=== PATIENT | female | born 1970 ===

== ENCOUNTER 2017-04-30 23:53 | Inpatient (IN) ==
[2017-05-01] MEDS ORDERED: MORPHINE 2 MG/1 ML SYRINGE IV STA (00:47)
[2017-05-01] MEDS ORDERED: methylPREDNISolone SOD SUC 125 MG/2 ML VIAL IV STA (00:47)
[2017-05-01] MEDS ORDERED: FUROSEMIDE 100 MG/10 ML VIAL IV STA (00:47)
[2017-05-01] MEDS ORDERED: cefTRIAXone 1,000 MG in SODIUM CHLORIDE 0.9% 100 ML IV STA (00:47)
[2017-05-01] MEDS ORDERED: ONDANSETRON 4 MG/2 ML VIAL IV STA (00:47)
[2017-05-01] MEDS ORDERED: ALBUTEROL 2.5 MG/3 ML NEB RESP TX SCH (01:00)
[2017-05-01] MEDS ORDERED: ONDANSETRON 4 MG/2 ML VIAL ONE (01:01)
[2017-05-01] MEDS ORDERED: cefTRIAXone 1,000 MG VIAL ONE (01:01)
[2017-05-01] MEDS ORDERED: MORPHINE 2 MG/1 ML SYRINGE ONE (01:02)
[2017-05-01] MEDS ORDERED: FUROSEMIDE 100 MG/10 ML VIAL ONE (01:02)
[2017-05-01] MEDS ORDERED: SODIUM CHLORIDE 0.9% 100 ML IV ONE (01:02)
[2017-05-01] MEDS ORDERED: methylPREDNISolone SOD SUC 125 MG/2 ML VIAL ONE (01:02)
--- NOTE | 2017-05-01 01:10 | Emergency Department Note ---
Freddy Gar Emily, am scribing for, and in the presence of, Rian Grace MD 01: 09. Lesly Gar Charles R, MD, personally performed the services described in this documentation, ascribed by Hilary Hayes in my presence, and it is both accurate and complete . Arrival - Arrival Chief Complaint: Shortness of Breath Stated Complaint: shortness of breath ED Nursing Triage Note: shortness of breath, unable to ambulate long distances, dyspnea at rest Mode of Arrival: Stretcher Limitations: No Limitations Source: Patient Time Seen by Provider: 05/01/17 00:29 - History of Present Illness HPI Narrative: Pt is a 46 y/o female who was transferred from [facility] for further evaluation of dyspnea that started yesterday. Pt c/o SOB, dyspnea, and PERRY but denies chest pain. Pt reports having abdomen pain and was dx on April 08, with tumor on abdomen that is cancerous, but is unsure of what exactly or stage. Pt states she has appointment tomorrow in [place] for treatment plan but wants to stay in [place] for tx. CT chest from [facility] shows pleural effusion, possible PNA, and fatty liver. Pt reports not able to eat, saying "it just sits on my stomach," and bloating with distention. Pt received 20mg of Lasix at [facility]OLOGIST. Onset (ago): day(s) Consistency: constant Severity: moderate Severity scale (1-10): 8 Quality: aching, fullness Date of Last Menstrual Period: 10/26/16 Review of System - Review of System 12 point system: reviewed and no additional remarkable complaints except as stated - Review of System Constitutional: Absent: fever Respiratory: Present: respiratory distress, other (dypnea). Absent: cough Cardiovascular: Present: dyspnea on exertion. Absent: chest pain Gastrointestinal: Present: abdominal pain. Absent: nausea, vomiting Skin: Absent: rash Neurological: Absent: headache, confusion Medical,Surgical,& Family Hx - Family History Family History: noncontributory - Social History Smoking Status: Former smoker Frequency of Alcohol Use: Occasionally Type of Drug Use: None Functional capacity: independent ambulation Exam Vital Signs: Vital Signs Temperature 98.5 F 05/01/17 00:00 Pulse Rate 90 05/01/17 01:17 Respiratory Rate 22 07/07/17 01:17 Blood Pressure 120/71 05/01/17 00:00 O2 Sat by Pulse Oximetry 92 L 05/01/17 01:17 - General General appearance: alert, in no apparent distress, obese (morbidly) - Head Head exam: Present: atraumatic, normocephalic - Eye Eye exam: Present: PERRL, EOMI - ENT ENT exam: Present: mucous membranes moist. Absent: mucous membranes dry - Neck Neck exam: Present: full ROM. Absent: tenderness - Chest Chest inspection: Present: symmetric chest wall rise. Absent: tenderness - Respiratory Respiratory exam: Present: rales (bilateral). Absent: normal lung sounds bilaterally - Cardiovascular Cardiovascular exam: Present: regular rate, normal rhythm, normal heart sounds - Abdominal Exam Abdominal exam: Present: soft, distention (protrubent). Absent: tenderness ( fullness), guarding, rebound - Extremities Exam Extremities exam: Present: full ROM, pedal edema (+2). Absent: tenderness - Neurological Exam Neurological exam: Present: alert, oriented X3, CN II-XII intact. Absent: motor sensory deficit - Psychiatric Psychiatric exam: Present: normal affect, normal mood - Skin Skin exam: Present: warm, dry Results - Labs CBC & BMP: 05/01/17 01:14 Lab Results: I have reviewed the patients labs Labs: Laboratory Tests 05/01/17 01:10 ABG pH 7.426 ABG pCO2 52.5 H ABG pO2 64.7 L ABG HCO3 32.0 H ABG Total CO2 30.5 H ABG O2 Saturation 92.1 L ABG Base Excess 8.4 H FiO2 32.00 Disposition Clinical Impression: Pneumonia, Carcinomatosis, Abdominal pain, Ovarian cancer, Abdominal carcinomatosis, Acute dyspnea, Morbid obesity Case discussed with: patient Disposition: Still a Patient Condition: Stable Time of Disposition: 01:09
[2017-05-01 01:32] LABS: ABG Base Excess 8.4 MMOL/L (-2.5-2.5); ABG Oxygen Saturation 92.1 % (95-100); ABG PCO2 52.5 MM HG (35-48); ABG PH 7.426 (7.35-7.45); ABG PO2 64.7 MM HG (80-95); ABG TCO2 30.5 MMOL/L (23-27); Allen Test Positive
[2017-05-01 01:46] LABS: Basophils % 0.2 % (0.0-0.8); Eosinophils % 0.1 % (0.00-10.9); Immature Granulocytes % 1.3 %; Immature Granulocytes Absolute 0.16 #; Lymphocytes # 0.7 10*3/uL (1.4-4.0); Lymphocytes % 5.6 % (21.3-54.2); Mean Corpuscular HGB Conc 32.4 GM/DL (32-36); Mean Corpuscular Hemoglobin 29 PG (27-34); Mean Corpuscular Volume 90.2 FL (87-102); Monocytes # 0.3 10*3/uL (0.11-0.8); Monocytes % 2.2 % (1.7-12.7); Neutrophils # 11.4 10*3/uL (1.4-7.4); Neutrophils % 90.6 % (38.7-73.9); Platelet Count 510 T/CUMM (130-400); Red Cell Distribution Width 14.5 % (9.3-17.3); White Blood Count 12.6 T/CUMM (4-12)
--- NOTE | 2017-05-01 01:46 | Hospitalist History & Physical ---
Assessment and Plan (1) Abdominal carcinomatosis Status: Acute Current Visit: Yes (2) Abdominal pain Status: Acute Current Visit: Yes (3) Acute dyspnea Status: Acute Current Visit: Yes (4) Carcinomatosis Status: Acute Current Visit: Yes (5) Morbid obesity Status: Acute Current Visit: Yes (6) Pneumonia Status: Acute Current Visit: Yes (7) Hemoptysis Status: Acute Assessment and plan: Our plan for this patient will be admitting her to our service will treat her under the pneumonia protocol. I will continue her home meds as appropriate. I am going to consult pulmonary since she is having hemoptysis. Will also consult hematology oncology regarding the abdominal cancer and gynecological cancer. Will order abdominal ultrasound and pelvic ultrasound. Current Visit: Yes History of Present Illness Chief complaint: Shortness of breath, hemoptysis, abdominal pain History of present illness: Ms. Jarrett is a 46 year old female with past medical history significant for hypertension, morbid obesity and gynecological cancer that has not been staged yet. Patient reports that she has had abdominal pain 3 months. Nurse practitioner at [facility] had ordered MRI at our hospital and it was performed on 04/08/2017. The impression was bilateral large complex cystic and solid masses within the [place]nex[place] no normal ovarian tissue seen. Ascites was present it was moderately severe. Patient had a CT scan of her abdomen done today at [facility]. The findings for it noted focal infiltrative disease at the intermittent suspicious for carcinomatous and question of additional peritoneal carcinomatosis with mild to moderate density intraperitoneal fluid. She also noted is having chronic changes including obesity hepatis to ptosis and hepatomegaly. I suggested follow-up with abdominal and pelvic ultrasound. Patient CT scan of her chest showed mild pleural effusion predominantly on the left with mild bilateral predominantly posterior pulmonary lower lobe patchy lung disease compatible with atelectasis and suggestive of infiltrate consistent with pneumonia. Patient was to have a appointment with Dr. Dahlia Perdomo at [facility] tomorrow. She has never been seen at [facility] before. The reason she was transferred to our hospital was that she was short of breath 2 days. She has been breaking into sweats. She has been having a cough that has been streaked with blood at times. She feels better with breathing treatment I was consulted to admit her through the emergency room for pneumonia Medical,Surgical,& Family Hx - Medical History Cardio: History of: Hypertension Reproductive: History of: Reproductive Cancer - Surgical History Abdominal Surgeries: Surgical HX of: Cholecystectomy - Social History Smoking Status: Former smoker Frequency of Alcohol Use: Occasionally Type of Drug Use: None 12 point system: reviewed and no additional remarkable complaints except as stated Exam - Constitutional Vitals: Period Temp Pulse Resp BP Sys/[place] Pulse Ox Last 24 Hr 98.5 F-98.5 F 86-90 20-22 120-120/71-71 92-94 - General General appearance: alert, in no apparent distress, obese (morbidly) - Head Head exam: Present: atraumatic, normocephalic - Eye Eye exam: Present: PERRL, EOMI - ENT ENT exam: Present: mucous membranes moist. - Neck Neck exam: Present: full ROM. - Chest Chest inspection: Present: symmetric chest wall rise - Respiratory Respiratory exam: Present: rales (bilateral). And wheezing - Cardiovascular Cardiovascular exam: Present: regular rate, normal rhythm, normal heart sounds - Abdominal Exam Abdominal exam: Present: soft, distention (protrubent) patient does have tenderness and a fullness sensation on her upper abdomen. - Extremities Exam Extremities exam: Present: full ROM, pedal edema (+2). Absent: tenderness - Neurological Exam Neurological exam: Present: alert, oriented X3, CN II-XII intact. Absent: motor sensory deficit - Psychiatric Psychiatric exam: Present: normal affect, normal mood - Skin Skin exam: Present: warm, dry Results - Labs Labs: Labs from [facility] displayed a white count of 14.2 hemoglobin 12.6 hematocrit 38.8 BUN 7 sodium 137 potassium 3.3 CO2 was 29.2 total protein 7.9 albumin 2.5 total bili 0.5 alk phos 90 SGOT 19 SGPT 32 CPK 0.2 direct bili 0.2 troponin less than 0.05 glucose 174 calcium 7.4 chloride 97 creatinine 1.0 pro BNP was 510 urinalysis was negative
[2017-05-01 01:59] LABS: Alanine Aminotransferase 16 U/L (13-56); Albumin 2.5 G/DL (3.4-5.0); Alkaline Phosphatase 87 U/L (45-117); Aspartate Amino Transferase 27 U/L (0-37); Blood Urea Nitrogen 6 MG/DL (7-18); Calcium 7.6 MG/DL (8.5-10.1); Glucose 159 MG/DL (74-106); Magnesium 1.3 MG/DL (1.8-2.4); Osmolality,Calculated 273.8 MOS/KG (273-304); Potassium 3.7 MMOL/L (3.5-5.1); Sodium 137 MMOL/L (136-145); Total Protein 7.2 G/DL (6.4-8.3); Troponin I Only < 0.015 NG/ML (0.00-0.045)
[2017-05-01] MEDS ORDERED: ONDANSETRON 4 MG/2 ML VIAL IV PRN (02:18)
[2017-05-01] MEDS ORDERED: GLUCAGON 1 MG VIAL IM PRN (02:18)
[2017-05-01] MEDS ORDERED: ALBUTEROL 2.5 MG/3 ML NEB RESP TX PRN (02:18)
[2017-05-01] MEDS ORDERED: DEXTROSE 50% 25 GM/50 ML VIAL IV PRN (02:18)
[2017-05-01] MEDS ORDERED: MORPHINE 2 MG/1 ML SYRINGE IV PRN (02:18)
[2017-05-01 03:21] LABS: Lymphocytes 5 % (20-55); Platelet Estimate Normal; Segmented Neutrophils 93 % (50-85); Total Cells Counted 100
[2017-05-01] MEDS ORDERED: MAGNESIUM SULF RIDER 2 GM in PREMIX 1 EACH IV ONE (04:00)
[2017-05-01] MEDS: AZITHROMYCIN INJ 500 MG in SODIUM CHLORIDE 0.9% 250 ML IV SCH (04:04)
[2017-05-01 05:20] LABS: Apearance,Urine CLEAR (Clear); Bacteria,Urine Occasional /HPF (Few); Bilirubin,Urine Negative (Negative); Blood, Urine Negative (Negative); Glucose,Urine (UA) Negative (Negative); Hyaline Casts,Urine 1 /LPF (0-3); Ketones,Urine Negative (Negative); Mucus,Urine Occasional /LPF (Occasional); Nitrite,Urine Negative (Negative); Protein,Urine Negative; Squamous Epithelial Cell,Urine Occasional /HPF (0-10); Urine Color Straw (Yellow); Urine Specific Gravity 1.003 (1.001-1.035); Urine Urobilinogen < 2.0 EU/DL (0.2-1.0)
--- NOTE | 2017-05-01 06:06 | XRay Report ---
XR chest 1V portable Indication: Shortness of breath Comparison: Chest x-ray 04/30/2016. Technique: Portable AP chest was performed. Findings: Underpenetrated chest demonstrates normal heart size and parenchymal opacities within the left lung base that partially obscure the left hemidiaphragm. Haziness in the more lateral aspect left lung base may reflect dependent fluid. Lungs otherwise are grossly clear. Bones and soft tissues are unremarkable. Impression: 1. Infectious process and/or atelectasis could be considered within the left lung base. Small left-sided pleural effusion is not excluded. Good quality PA/lateral chest x-ray would be useful for further evaluation. 05/01/2017 6:02 AM PROCEDURE INTERPRETED AT [facility] DEPARTMENT OF RADIOLOGY Final Report Signed by: Dr. Elliott Rodriguez
[2017-05-01] MEDS: ALBUTEROL 2.5 MG/3 ML NEB RESP TX SCH ×3 (06:45→19:41)
[2017-05-01] MEDS: INSULIN REGULAR 100 UNIT/ML SUBCUT SCH ×4 (07:58→20:39)
--- NOTE | 2017-05-01 08:07 | EKG Report ---
Stationary ECG Study [facility] ER Test Date: 05/01/2017 12:40:13 AM Pat Name: CHRISTINA DALTON Department: Room: Gender: F Index Editor: : 1970 Requested by: Rian Rutherford Order Number: [id number] Reading MD: RANDY BETTS Intervals [place] Rate: 89 P: 55 WA: 165 QRS: 18 QRSD: 110 T: 24 QT: 388 QTc: 435 Interpretive Statements SINUS RHYTHM WITH PAC/aberrancy Poor R wave progression Electronically Signed On 05-01-17 08:06:38 CDT by RANDY BETTS [email or web address]
[2017-05-01] MEDS: PANTOPRAZOLE 40 MG TABLET PO SCH (08:14)
[2017-05-01] MEDS: ENOXAPARIN 40 MG/0.4 ML SYRINGE SUBCUT SCH (08:14)
--- NOTE | 2017-05-01 08:19 | Pulmonology Consult Note ---
Assessment and Plan (1) Pneumonia Status: Acute Assessment and plan: The patient comes in coughing up some blood-tinged sputum and looks like she has some left lower lobe pneumonia with effusion. She may need a thoracentesis at some point but she at present has trouble sitting up. She is started on antibiotics and respiratory therapy. Current Visit: Yes (2) Malignant neoplasm of ovary Status: Acute Assessment and plan: She apparently has large ovarian masses and carcinomatosis. She has had an ultrasound of her abdomen. Current Visit: Yes (3) Abdominal carcinomatosis Status: Acute Assessment and plan: She does have swelling and ascites and a very large abdomen. Current Visit: Yes (4) Morbid obesity Status: Acute Assessment and plan: The patient is considerably overweight at this point. She did diurese a little. Current Visit: Yes History of Present Illness Chief complaint: Shortness of breath History of present illness: Ms. Jarrett is a 46 year old female that has a history of obesity and hypertension and has recently been found to have ovarian cancer. She apparently has large ovarian masses and carcinomatosis of her abdomen. She is actually scheduled to go to [facility] today but came down because of worsening shortness of breath. She has had abdominal swelling and has trouble sitting up because of the discomfort in her upper abdomen. The last few days she has had some night sweats and is comfortable little bit of blood-tinged sputum. She does not have any definite pleurisy. She was felt to have some left lower lobe pneumonia on her scans. She is a former smoker but no history of lung disease. She says she is reasonably comfortable at present lying flat in bed. Home Medications Medication Instructions Recorded Confirmed Type Acetaminophen Tab [Tylenol Tab] 500 mg PO Q6H PRN 05/01/17 05/01/17 History Ergocalciferol (Vitamin D2) 50,000 unit PO Q7DAY 05/01/17 05/01/17 History [Vitamin D2] HYDROcodone/ACETAMIN 7.5-325 1 tablet PO Q6H PRN 05/01/17 05/01/17 History [[place] 7.5-325] Lisinopril 10 mg PO DAILY 05/01/17 05/01/17 History Methocarbamol Tab [Robaxin Tab] 750 mg PO TID 05/01/17 05/01/17 History Multivitamin [One Daily 1 each PO DAILY 05/01/17 05/01/17 History Multivitamin] Ondansetron [Ondansetron Odt] 2 mg PO Q8H PRN 05/01/17 05/01/17 History Sennosides/Docusate Sodium 1 each PO DAILY 05/01/17 05/01/17 History [Senna-S Tablet] Tramadol HCl [Tramadol Tab] 50 mg PO Q6H PRN 05/01/17 05/01/17 History Allergies Allergy/AdvReac Type Severity Reaction Status Date / Time No Known Allergies Allergy Unverified 05/01/17 02:33 - Constitutional Constitutional: Present: chills, excessive sweating, night sweats, weight gain. Absent: fever(s) - EENT Eyes: Absent: loss of vision Ears: Absent: decreased hearing Nose, mouth and throat: Absent: dysphagia, headache(s), sinus pressure - Cardiovascular Cardiovascular: Present: dyspnea, edema. Absent: chest pain at rest - Respiratory Respiratory: Present: cough, dyspnea, hemoptysis, change in phlegm color. Absent: pain on inspiration - Gastrointestinal Gastrointestinal: Present: abdominal pain, bloating. Absent: dysphagia, nausea , vomiting - Genitourinary Genitourinary: Present: flank pain. Absent: difficulty urinating, hematuria - Musculoskeletal Musculoskeletal: Absent: arthralgias, muscle weakness - Neurological Neurological: Absent: abnormal speech, focal weakness, paresthesias - Psychiatric Psychiatric: Absent: anxiety Exam (Pulmonay) H&P - Constitutional Vitals: Period Temp Pulse Resp BP Sys/[place] Pulse Ox Last 24 Hr 97.2 F-98.5 F 84-103 17-30 94-176/45-107 91-98 General appearance: mild distress (The patient is reasonably comfortable lying flat in bed but has some discomfort when she sits up), morbidly obese - Head Head exam: Present: normal inspection, normocephalic - Eye Eye exam: Present: EOMI. Absent: scleral icterus Pupils: Present: CONCEPCION - ENT ENT exam: Present: normal exam - Neck Neck exam: Present: normal inspection. Absent: lymphadenopathy - Respiratory Respiratory exam: Present: decreased breath sounds, rales (She does have some crackles in her left base.). Absent: accessory muscle use, wheezes - Cardiovascular Cardiovascular exam: Present: regular rate and rhythm. Absent: gallop, systolic murmur - GI/Abdominal GI/Abdominal exam: Present: ascites, distended, firm (She does have a doughy feeling abdomen.), tenderness (She does have mild tenderness throughout), soft. Absent: organomegaly, rebound - Extremities Exam Extremities exam: Present: edema (She does have mild edema of her legs.). Absent: calf tenderness - Neurological Exam Neurological exam: Present: alert, oriented X3, CN II-XII intact - Psychiatric Psychiatric exam: Present: normal affect, normal mood - Skin Skin exam: Present: warm, dry Medical,Surgical,& Family Hx - Medical History Cardio: History of: Hypertension Reproductive: History of: Reproductive Cancer - Surgical History Abdominal Surgeries: Surgical HX of: Cholecystectomy - Family History Family History: Reports;: Family Cancer (mother), Family Diabetes (mother), Family Hypertension (mother) - Social History Smoking Status: Former smoker Frequency of Alcohol Use: Occasionally Type of Drug Use: None Results - Labs CBC & BMP: 05/01/17 01:14 05/01/17 01:14 Labs: Her PO2 is 64 with a PCO2 of 52 and a pH 7.42 - Diagnostic Findings Procedure: Chest x-ray: image reviewed by me, report reviewed by me (Chest x- ray shows haziness in the left base), CT - chest: image reviewed by me, report reviewed by me (CT does show some consolidation and effusion in the left base.)
[2017-05-01] MEDS ORDERED: FUROSEMIDE 40 MG/4 ML VIAL IV ONE (08:27)
--- NOTE | 2017-05-01 08:27 | Ultrasound Report ---
US abdomen Indication: Abdominal pain status post cholecystectomy. Comparison: None. Technique: Using transcutaneous probe, ultrasound imaging of the abdomen was performed. Ultrasound images were captured and stored. Interrogated structures include the liver, gallbladder, spleen, pancreas, right kidney, left kidney, aorta, and inferior vena cava. Findings: Aorta is not identified secondary to bowel gas. IVC is obscured from bowel gas. Liver is not well visualized. Liver appears to be enlarged and may be hyperechoic compared to right renal cortex. As measured, the right hepatic lobe is 21 to 22 cm. Boundaries of the liver are not well visualized. There may be minimal nodularity of the hepatic margin. Color flow is demonstrated within the interrogated portal venous segment. Common bile duct measures 4.4 mm. Pancreas is not well-visualized secondary to bowel gas. The small portion of the pancreatic head image demonstrates no evidence of abnormality. Right kidney measures 11.3 cm in craniocaudal dimension. Left kidney measures 11.8 cm in craniocaudal dimension. Spleen is grossly normal in size. Spleen is not well-visualized. Impression: 1. Largely a nondiagnostic exam secondary to poor visualization of multiple organs. Architectural details of the liver, pancreas, and kidneys are not well defined. Hepatic steatosis is not excluded. Hepatomegaly is suggested. 05/01/2017 8:22 AM PROCEDURE INTERPRETED AT [facility] DEPARTMENT OF RADIOLOGY Final Report Signed by: Dr. Elliott Rodriguez
--- NOTE | 2017-05-01 08:36 | Ultrasound Report ---
US transabdominal TV pelvis Indication: "Findings on CT scan" Comparison: There are no cross-sectional CT images of the abdomen or pelvis for comparison. Comparison is made to MRI of the pelvis performed 04/08/2017. Technique: Using transcutaneous and endovaginal probe, grayscale and color Doppler images of the pelvis were captured and stored. Findings: The right ovary measures 11.3 x 13.3 x 10.1 cm. Echotexture of the right ovary is more hypoechoic than expected. Additionally within the posterior aspect of the right ovary, there is a round oval more hypoechoic region measuring 5.1 x 4.4 cm favored to represent cyst. Left ovary additionally is enlarged measuring 9.4 x 12.3 x 7.9 cm. Poorly visualized left ovarian cysts are suggested, measuring up to 4.1 cm. The uterus measures 9.5 cm craniocaudal x 4.5 cm AP and has not identified in the transverse images submitted. Endometrial stripe as measured is 9 mm. Impression: 1. Bilateral ovarian enlargement is demonstrated. At least one large cyst is present within the right ovary. Left ovarian cyst is additionally suggested. Note is made that MRI is the optimal imaging modality for this entity. If clinical change has occurred since the comparison MRI images, repeat MRI of the pelvis is recommended for further evaluation. No meaningful history was provided prior to interpretation. Typically, pertinent history aids the interpretation of diagnostic studies. The numerous ovarian cysts demonstrated on MRI suggesting polycystic ovarian disease are not well reflected on ultrasound. 2. The uterus is not well-visualized. 05/01/2017 8:25 AM PROCEDURE INTERPRETED AT [facility] DEPARTMENT OF RADIOLOGY Final Report Signed by: Dr. Elliott Rodriguez
--- NOTE | 2017-05-01 09:17 | Oncology Consult Note ---
History of Present Illness Chief complaint: Probable gynecologic malignancy History of present illness: Ms. 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 However, she tells me that she has not had a tissue diagnosis. She was scheduled to see Dr. Perdomo in [place] this morning. However, she was transferred from the [facility] service early this morning with abdominal distention, dyspnea and running usually severe abdominal pain. In addition, she was producing blood-tinged sputum on admission and was noted to have pneumonia and a left pleural effusion and is being evaluated by Dr. Lauro Dominique. She is relatively well informed and tells me that she has been having symptoms for at least the last 3 months. Her last menstrual period was 6 months ago and prior to that time it was very irregular, occurring about every 3 months and being very short in duration. This lady had an MRI of the pelvis on April 08, 2017 that demonstrated bilateral large complex ovarian cysts and solid masses within the adnexa. No normal ovarian tissue was identified. The opinion of the reading radiologist was at this was possibly an ovarian cancer or other pelvic malignancy. Ascites was identified as well as suggestion of omental caking. The uterus demonstrated multiple fibroids and there was endometrial thickening. She has evidently also had CTs of her abdomen at the [facility]. Past medical history: No known allergies. She has been placed on lisinopril by Dr. Anderson and she tells me that she was found to have proteinuria but she described it as a "hole in my kidney". She is not diabetic. Cholecystectomy at age 17. Social history: She drinks occasionally and when she drinks, she smokes cigarettes. She tells me that she does not usually smoke if she is not drinking but she stopped doing both for about a month now. Family history is positive for cervical cancer in her mother but it was cured with surgery. No other first-degree relatives have any malignancies. She has at least one fourth cousin who had breast cancer. ROS Gen.: She is tells me that she has been having progressively increasing discomfort in her abdomen accompanied by dyspnea for at least 3 months. Eyes: No history of chronic disease, infections or visual loss. ENT: No history of chronic infections, epistaxis, chronic sore throat Lungs: She has begun to have increasing dyspnea which she describes in part as being restrictive lung disease brought on by her increasing abdominal distention. No prior history of asthma, emphysema, hemoptysis, chronic pleurisy or long-term or chronic infections Cardiovascular: No history of angina, coronary artery disease, congestive heart failure, cardiovascular surgery or DVT/VTE GI: She has had some gastroesophageal reflux and nausea and significant decrease in her appetite accompanied by gradually worsening abdominal distention. She has had a cholecystectomy when she was 17. No history of upper or lower GI bleeding, melena, dysphagia, odynophagia, liver disease or pancreatic disease. : No history of kidney stones, chronic kidney infections or hematuria. ELECTRICAL DESIGN TECHNOLOGIST: She has not had any biopsy-proven malignancy. Her menses have become more irregular and it appears that she is approaching menopause. Musculoskeletal: No history of chronic bone or joint pain or focal muscle atrophy or bone or joint deformity. Neurologic: No history of seizures, convulsions or paralysis. Psychiatric: No history of chronic psychiatric illness or psychiatric medications. Lymphatic: No history of significant or long-term lymphadenopathy Hematologic: No history of anemia, bleeding disorders or blood dyscrasias or long-term elevation or depression white cell count or petechiae. Skin: No history of chronic skin infections or rashes or significant skin lesions. Physical examination: General: The patient is morbidly obese and she is tachypneic and is in some respiratory distress. Eyes: Normal lids and conjunctivae. ENT: Her oral mucosa and pharynx are normal. Her trachea is midline and she has no neck masses. Lungs: Decreased breath sounds in the dependent portions of the lungs. She is tachypneic and she is not moving air very well, apparently because of abdominal distention. Cardiovascular: Radial pulses are normal. Her heart rhythm is regular without murmur, gallop or rub. There is no jugular venous distention, clubbing or cyanosis. Abdomen: She has abdominal distention and appears to have ascites. She is diffusely tender. She is obese and I cannot palpate any definite masses between the ascites and the obesity. Musculoskeletal: There is no obvious focal muscle atrophy or bone or joint deformity. Neurologic: Cranial nerves II through XII are intact and there are no focal neurologic deficits. Psychiatric: She has no evidence of confusion. She is fully oriented and alert and describes the onset of this illness very well. Breasts: Neck and thyroid examination demonstrates no neck masses and her trachea is midline. Skin: Cursory examination is normal. Lab work done thus far on this admission includes a comprehensive metabolic profile with a low serum calcium of 7.6 and a correspondingly low serum albumin of 2.5. Renal function is normal with a serum creatinine of 0.6 and the rest of the comprehensive metabolic profile is relatively inconsequential. The CBC on this admission includes a hemoglobin of 12.0 with a white cell count of 12,600 and a platelet count of 510,000. I have ordered a CA 125 level, CEA level and CA-19-9. Impression: I suspect the patient does have a gynecologic malignancy. In addition she appears to have restrictive lung disease as result of her ascites and morbid obesity. History of pleural effusion probably related to the malignancy. Once she is stable, consider consulting interventional radiology for possible needle biopsy of whatever tissue they feel is appropriate. Home Medications Medication Instructions Recorded Confirmed Type Acetaminophen Tab [Tylenol Tab] 500 mg PO Q6H PRN 05/01/17 05/01/17 History Ergocalciferol (Vitamin D2) 50,000 unit PO Q7DAY 05/01/17 05/01/17 History [Vitamin D2] HYDROcodone/ACETAMIN 7.5-325 1 tablet PO Q6H PRN 05/01/17 05/01/17 History [[place] 7.5-325] Lisinopril 10 mg PO DAILY 05/01/17 05/01/17 History Methocarbamol Tab [Robaxin Tab] 750 mg PO TID 05/01/17 05/01/17 History Multivitamin [One Daily 1 each PO DAILY 05/01/17 05/01/17 History Multivitamin] Ondansetron [Ondansetron Odt] 2 mg PO Q8H PRN 05/01/17 05/01/17 History Sennosides/Docusate Sodium 1 each PO DAILY 05/01/17 05/01/17 History [Senna-S Tablet] Tramadol HCl [Tramadol Tab] 50 mg PO Q6H PRN 05/01/17 05/01/17 History Allergies Allergy/AdvReac Type Severity Reaction Status Date / Time No Known Allergies Allergy Unverified 05/01/17 02:33 Medical,Surgical,& Family Hx - Medical History Cardio: History of: Hypertension Reproductive: History of: Reproductive Cancer - Surgical History Abdominal Surgeries: Surgical HX of: Cholecystectomy - Family History Family History: Reports;: Family Cancer (mother), Family Diabetes (mother), Family Hypertension (mother) - Social History Smoking Status: Former smoker Frequency of Alcohol Use: Occasionally Type of Drug Use: None Exam - Constitutional Vitals: Period Temp Pulse Resp BP Sys/Arango Pulse Ox Last 24 Hr 97.2 F-98.5 F 82-103 17-30 94-176/45-107 91-98 Results - Labs CBC & BMP: 05/01/17 01:14 05/01/17 01:14
--- NOTE | 2017-05-01 10:49 | Ultrasound Report ---
US venous doppler LE BI Indication: Shortness of breath Comparison: None. Technique: Using a transcutaneous probe, grayscale, spectral Doppler, and color Doppler images of the bilateral lower extremity venous structures were captured and stored. Grayscale images prior to and following compression were obtained. Interrogated venous structures include the bilateral common femoral vein, superficial femoral vein (proximal, mid, and distal), and popliteal vein. Findings: There is no evidence of thrombus within the interrogated venous structures. the interrogated venous segments demonstrate presence of both color flow and spectral flow. Impression: 1. No evidence of venous thrombosis. 05/01/2017 10:46 AM PROCEDURE INTERPRETED AT [facility] DEPARTMENT OF RADIOLOGY Final Report Signed by: Dr. Elliott Rodriguez
--- NOTE | 2017-05-01 11:30 | Hospitalist Progress Note ---
Assessment and Plan (1) Pneumonia Status: Acute Assessment and plan: Continue with broad-spectrum antibiotics. Current Visit: Yes Qualifiers: Pneumonia type: due to Mycoplasma pneumoniae Laterality: left (2) Abdominal pain Status: Acute Current Visit: Yes Qualifiers: Abdominal location: generalized Qualified Code(s): R10.84 - Generalized abdominal pain (3) Abdominal carcinomatosis Status: Acute Current Visit: Yes (4) Acute dyspnea Status: Acute Assessment and plan: This appears to be improving with oxygen therapy. Lower extremity Dopplers were negative. Pending VQ scan. Current Visit: Yes (5) Morbid obesity Status: Chronic Current Visit: Yes Qualifiers: Obesity type: due to excess calories Qualified Code(s): E66.01 - Morbid ( severe) obesity due to excess calories (6) Hemoptysis Status: Acute Assessment and plan: History of pneumonia associated with pleural effusion. This is being followed by pulmonary. She is on broad-spectrum antibiotics. Current Visit: Yes Hospitalist: Subjective Interval history: This patient was admitted in transfer from [facility] earlier this morning due to shortness of breath and hemoptysis. It was at the outside hospital that the initial evaluation for shortness of breath revealed evidence of ovarian cancer by CT scan as well as pleural effusion. She has had a follow- up CT scan this morning that shows polycystic ovarian disease. Her cancer markers included a CEA and a CA 19-19 which have been within normal limits. Moreover she has evidence of a pneumonia and a left lung pleural effusion and has been evaluated by pulmonary. Her oxygen sats have been above 92%. No fevers or chills. Oncology has been consulted on this patient. Her lower extremity Dopplers are negative. Exam - Constitutional Vitals: Period Temp Pulse Resp BP Sys/Arango Pulse Ox Last 24 Hr 97.2 F-98.5 F 77-103 17-30 94-176/45-107 91-98 General appearance: over weight, morbidly obese - Head Head exam: Present: normal inspection - Eye Eye exam: Present: EOMI - ENT ENT exam: Present: normal exam - Neck Neck exam: Present: other (Short neck due to body habitus) - Respiratory Respiratory exam: Present: clear to auscultation bilaterally - Cardiovascular Cardiovascular exam: Present: regular rate and rhythm - GI/Abdominal GI/Abdominal exam: Present: distended, other (Morbidly obese). Absent: tenderness - Extremities Exam Extremities exam: Present: normal inspection - Psychiatric Psychiatric exam: Present: normal affect, normal mood - Skin Skin exam: Present: normal color Results - Labs CBC & BMP: 05/01/17 01:14 05/01/17 01:14
[2017-05-01] MEDS ORDERED: traMADol 50 MG TABLET PO PRN (11:34)
--- NOTE | 2017-05-01 13:19 | Nuclear Medicine Report ---
Exam: NM lung scan vent and per Date: 05/01/2017 10:05 AM Indication: Shortness of breath question PE Comparison: None Findings: Patient was given 40 minutes millicuries of technetium 99 DTPA and 5 mCi of technetium 99 MAA. There is trapping of the radioaerosol in the endobronchial regions. The perfusion study reveals no obvious perfusion defects on anterior TEJAS and ATWOOD imaging. Impression: 1. Low probability pulmonary thromboemboli. PROCEDURE INTERPRETED AT [facility] DEPARTMENT OF RADIOLOGY Final Report Signed by: Dr. Ángel Lamb
[2017-05-01] MEDS: METHOCARBAMOL 750 MG TABLET PO SCH ×2 (15:48→20:26)
[2017-05-01] MEDS ORDERED: PROMETHAZINE 25 MG/1 ML VIAL IM PRN (21:23)
[2017-05-02] MEDS: ALBUTEROL 2.5 MG/3 ML NEB RESP TX SCH ×4 (01:12→20:59)
[2017-05-02] MEDS: cefTRIAXone 1,000 MG in SODIUM CHLORIDE 0.9% 100 ML IV SCH (02:26)
[2017-05-02] MEDS: AZITHROMYCIN INJ 500 MG in SODIUM CHLORIDE 0.9% 250 ML IV SCH (04:02)
[2017-05-02 05:11] LABS: Basophils % 0.1 % (0.0-0.8); Hematocrit 36.8 VOL% (35.7-47.0); Hemoglobin 11.8 GM/DL (12.0-16.0); Immature Granulocytes % 0.8 %; Immature Granulocytes Absolute 0.09 #; Lymphocytes % 9.3 % (21.3-54.2); Mean Corpuscular HGB Conc 32.1 GM/DL (32-36); Mean Corpuscular Hemoglobin 29 PG (27-34); Mean Corpuscular Volume 90.2 FL (87-102); Mean Platelet Volume 9.8 FL (9.6-12.0); Monocytes # 0.9 10*3/uL (0.11-0.8); Monocytes % 8.2 % (1.7-12.7); Neutrophils # 9.1 10*3/uL (1.4-7.4); Neutrophils % 81.6 % (38.7-73.9); Platelet Count 522 T/CUMM (130-400); Red Blood Count 4.08 MC/CUMM (3.8-5.5); Red Cell Distribution Width 14.6 % (9.3-17.3); White Blood Count 11.2 T/CUMM (4-12)
[2017-05-02 05:38] LABS: Calcium 7.8 MG/DL (8.5-10.1); Osmolality,Calculated 279.4 MOS/KG (273-304); Potassium 3.5 MMOL/L (3.5-5.1)
--- NOTE | 2017-05-02 07:22 | Pulmonology Progress Note ---
Pulmonary - PN: Subj Interval history: Patient doing well this morning, denies any difficulty breathing. Does endorse some abdominal discomfort. Otherwise no acute overnight events Exam (Progress Note) - Constitutional Vitals: Period Temp Pulse Resp BP Sys/Arango Pulse Ox Last 24 Hr 97.2 F-97.9 F 51-90 17-28 103-167/60-87 9-98 General appearance: no acute distress, morbidly obese - Head Head exam: Present: normal inspection - Respiratory Respiratory exam: Absent: accessory muscle use, stridor, wheezes - Cardiovascular Cardiovascular exam: Present: regular rate and rhythm Results - Labs CBC & BMP: 05/02/17 04:54 05/02/17 04:54 Lab Results: I have reviewed the past 24 hour labs - Diagnostic Findings Procedure: Chest x-ray: image reviewed by me, report reviewed by me (reviewed previous CXR, nothing new for today) Assessment and Plan (1) Acute dyspnea Status: Acute Assessment and plan: VQ scan of lung yesterday was low prob for PE. PRevious CXR was slightly dense at the LLL but given her weight, its hard to discern whether this is true airspace filling disease or not. Clinically doing well from a pulm standpoint. Repeat CXR tomorrow to ensure no increase in density of area of question. Bedside thoracentesis would be difficult given her weight, but nothing on last CXR suggests she needs this urgently Current Visit: Yes
[2017-05-02] MEDS: INSULIN REGULAR 100 UNIT/ML SUBCUT SCH ×4 (07:47→19:59)
[2017-05-02] MEDS: MULTIVITAMIN (CENTRUM) TABLET PO SCH (08:23)
[2017-05-02] MEDS: LISINOPRIL 10 MG TABLET PO SCH (08:23)
[2017-05-02] MEDS: ENOXAPARIN 40 MG/0.4 ML SYRINGE SUBCUT SCH (08:23)
[2017-05-02] MEDS: METHOCARBAMOL 750 MG TABLET PO SCH ×3 (08:23→20:00)
[2017-05-02] MEDS: DOCUSATE/SENNA 50-8.6 MG TABLET PO SCH (08:23)
[2017-05-02] MEDS: PANTOPRAZOLE 40 MG TABLET PO SCH (08:23)
--- NOTE | 2017-05-02 09:45 | Oncology Progress Note ---
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 The CA 125 is pending. She has a normal CEA and a normal CA-19-9 but a CAT scan that demonstrates relatively strong evidence of intra-abdominal carcinomatosis and mass-effect felt to represent at least stage III ovarian cancer until proven otherwise. On reviewing her CT of the abdomen and pelvis, I do not believe that she is a candidate for surgery. If she is established to have ovarian cancer, she should be treated initially with neoadjuvant chemotherapy plus Avastin or other targeted therapy such as Niraparib, which has been approved as second line therapy. I would initially consider treating her with paclitaxel and carboplatin, possibly with Avastin although she has bulky disease and it might not be indicated initially until the tumor has shrunk. With her permission, I am placing a consult to interventional radiology. In addition, I am ordering BRCA 1 and 2 blood testing. She is oriented and alert and feeling better. Case discussed briefly with Dr. Castillo. It is fine from my standpoint for her to be transferred to a private room. Exam - Constitutional Vitals: Period Temp Pulse Resp BP Sys/Arango Pulse Ox Last 24 Hr 97.4 F-97.9 F 51-82 17-28 103-167/60-87 9-98 Results - Labs CBC & BMP: 05/02/17 04:54 05/02/17 04:54
--- NOTE | 2017-05-02 13:47 | Hospitalist Progress Note ---
Assessment and Plan (1) Abdominal carcinomatosis Status: Acute Assessment and plan: The patient is admitted to the hospital with abdominal discomfort and shortness of breath with obesity. He should not requires biopsy to define her malignancy. Dr. Dorado is arranging with interventional radiology to have the biopsy on Thursday. The patient is ready for transfer to the [facility]. 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 I coordinated care with Dr. Dorado. The patient will require biopsy. The patient does not have any shortness of breath and is ready for transfer to [facility]. Exam - Constitutional Vitals: Period Temp Pulse Resp BP Sys/Arango Pulse Ox Last 24 Hr 97.4 F-97.9 F 51-93 16-28 103-167/60-91 9-98 Exam: Constitutional System: Minimal distress. No tremulousness. Sitting up in chair without shortness of breath Head: Normocephalic, atraumatic. Ears, Nose and Throat System: No evidence of Otitis or Mastoiditis. No epistaxis or discharge Eyes System: Pupils equal, round, and reactive. Extraocular muscles intact. Neck: Supple, without adenopathy, No jugular venous distention. No thyromegaly , neck mass, or prior surgery apparent. Respiratory System: Chest clear to auscultation. Cardiovascular System: Heart with regular rate and rhythm. No murmur. GI System: Abdomen soft, nontender. Normo active bowel sounds present. Musculoskeletal System: limbs with no pedal edema. Full distal pulses. Neurological System: No discernable sensory deficit. No aphasia Psychiatric System: Conversation is rational Results - Labs CBC & BMP: 05/02/17 04:54 05/02/17 04:54 Lab Results: I have reviewed the past 24 hour labs
[2017-05-03] MEDS: ALBUTEROL 2.5 MG/3 ML NEB RESP TX SCH ×4 (01:14→19:32)
[2017-05-03] MEDS: cefTRIAXone 1,000 MG in SODIUM CHLORIDE 0.9% 100 ML IV SCH (02:27)
[2017-05-03 06:34] LABS: Basophils % 0.3 % (0.0-0.8); Eosinophils # 0.3 10*3/uL (0.0-0.87); Eosinophils % 2.5 % (0.00-10.9); Hematocrit 38.2 VOL% (35.7-47.0); Hemoglobin 12.3 GM/DL (12.0-16.0); Immature Granulocytes % 0.8 %; Immature Granulocytes Absolute 0.09 #; Lymphocytes # 1.3 10*3/uL (1.4-4.0); Lymphocytes % 11.6 % (21.3-54.2); Mean Corpuscular HGB Conc 32.2 GM/DL (32-36); Mean Corpuscular Hemoglobin 30 PG (27-34); Mean Corpuscular Volume 91.6 FL (87-102); Mean Platelet Volume 10.2 FL (9.6-12.0); Monocytes # 1.2 10*3/uL (0.11-0.8); Monocytes % 10.5 % (1.7-12.7); NRBC # 0.07 10*3/uL; Neutrophils # 8.5 10*3/uL (1.4-7.4); Neutrophils % 74.3 % (38.7-73.9); Platelet Count 491 T/CUMM (130-400); Red Blood Count 4.17 MC/CUMM (3.8-5.5); Red Cell Distribution Width 14.6 % (9.3-17.3); White Blood Count 11.5 T/CUMM (4-12)
[2017-05-03] MEDS: INSULIN REGULAR 100 UNIT/ML SUBCUT SCH ×4 (08:03→20:16)
[2017-05-03] MEDS: DOCUSATE/SENNA 50-8.6 MG TABLET PO SCH (08:19)
[2017-05-03] MEDS: MULTIVITAMIN (CENTRUM) TABLET PO SCH (08:19)
[2017-05-03] MEDS: LISINOPRIL 10 MG TABLET PO SCH (08:20)
[2017-05-03] MEDS: PANTOPRAZOLE 40 MG TABLET PO SCH (08:21)
[2017-05-03] MEDS: AZITHROMYCIN 250 MG TABLET PO SCH (08:21)
[2017-05-03] MEDS: METHOCARBAMOL 750 MG TABLET PO SCH ×3 (08:22→20:32)
--- NOTE | 2017-05-03 08:24 | XRay Report ---
Single view of the chest. Indication: Left lower lobe lung opacity. Comparison: May 01, 2017. The heart is normal in size. The pulmonary vasculature is normal. The right lung is clear. There is atelectasis and pleural effusion at the left lung base, essentially stable. Impression: No interval change. PROCEDURE INTERPRETED AT [facility] DEPARTMENT OF RADIOLOGY Final Report Signed by: Dr. Radha Kitchen
--- NOTE | 2017-05-03 08:55 | Hospitalist Progress Note ---
Assessment and Plan - Time spent with patient Time spent with patient: Less than 30 minutes (1) Abdominal carcinomatosis Status: Acute Assessment and plan: Patient is noted to have intra-abdominal carcinomatosis. Dr. Dorado has been consulted and assisting with biopsy for diagnosis. Appreciate his assistance. Current Visit: Yes (2) Morbid obesity Status: Chronic Current Visit: Yes Qualifiers: Obesity type: due to excess calories Qualified Code(s): E66.01 - Morbid ( severe) obesity due to excess calories Hospitalist: Subjective Interval history: Patient examined and chart reviewed. Patient denies any complaints at this time. She denies any abdominal discomfort, nausea, vomiting, diarrhea, chest pain or shortness of breath. Exam - Constitutional Vitals: Period Temp Pulse Resp BP Sys/Arango Pulse Ox Last 24 Hr 96.9 F-98.7 F 58-93 16-25 121-167/64-91 92-98 General appearance: no acute distress, morbidly obese - Head Head exam: Present: normocephalic, atraumatic - Eye Eye exam: Present: EOMI Pupils: Present: CONCEPCION - ENT ENT exam: Present: normal oropharynx - Neck Neck exam: Present: normal inspection - Respiratory Respiratory exam: Present: clear to auscultation bilaterally. Absent: rales, rhonchi, wheezes - Cardiovascular Cardiovascular exam: Present: regular rate and rhythm - GI/Abdominal GI/Abdominal exam: Present: normal bowel sounds, soft. Absent: tenderness - Extremities Exam Extremities exam: Absent: calf tenderness, edema - Back Exam Back exam: Present: normal inspection - Neurological Exam Neurological exam: Present: alert, oriented X3, CN II-XII intact. Absent: motor sensory deficit - Psychiatric Psychiatric exam: Present: normal affect, normal mood. Absent: agitated, anxious - Skin Skin exam: Present: warm, dry. Absent: rash Results - Labs CBC & BMP: 05/03/17 05:32 05/02/17 04:54 Lab Results: I have reviewed the past 24 hour labs
[2017-05-03] MEDS: ENOXAPARIN 40 MG/0.4 ML SYRINGE SUBCUT SCH (09:54)
--- NOTE | 2017-05-03 09:54 | Oncology Progress Note ---
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 The CA 125 is still pending that was ordered May 01. She has a normal CEA and a normal CA-19-9 but a CAT scan that demonstrates relatively strong evidence of intra-abdominal carcinomatosis and mass-effect felt to represent at least stage III ovarian cancer until proven otherwise. She is having surprisingly little discomfort at this point. On reviewing her CT of the abdomen and pelvis, I do not believe that she is a candidate for surgery. If she is established to have ovarian cancer, she should be treated initially with neoadjuvant chemotherapy plus Avastin or other targeted therapy such as Niraparib, which has been approved as second line therapy. I would initially consider treating her with paclitaxel and carboplatin, possibly with Avastin although she has bulky disease and it might not be indicated initially until the tumor has shrunk. She has had no nausea or vomiting and her dyspnea has significantly improved. With her permission, I have consulted to interventional radiology. In addition, I am ordering BRCA 1 and 2 blood testing. I have ordered this test because there are targeted therapies available for treatment of ovarian cancer that has progressed on [place] based chemotherapy and I would like to get this out of the way to avoid delay in treatment if I need to change treatment. On physical examination she is oriented and alert. She is in a very pleasant mood. Eyes: Normal lids and conjunctivae. ENT: Her oral mucosa and pharynx are normal. Cardiovascular: Her heart rhythm is regular without murmur, gallop or rub. There is no jugular venous distention. Pulmonary: Her chest moves symmetrically with respiration. I hear no rubs, rales or rhonchi. Abdomen: She is morbidly obese. Neurologic: Cranial nerves II through XII are intact. Psychiatric: She is fully oriented and alert. Exam - Constitutional Vitals: Period Temp Pulse Resp BP Sys/Arango Pulse Ox Last 24 Hr 96.9 F-98.7 F 58-93 16-25 121-167/64-91 92-98 Results - Labs CBC & BMP: 05/03/17 05:32 05/02/17 04:54
[2017-05-04] MEDS: ALBUTEROL 2.5 MG/3 ML NEB RESP TX SCH ×4 (00:52→20:24)
[2017-05-04] MEDS: cefTRIAXone 1,000 MG in SODIUM CHLORIDE 0.9% 100 ML IV SCH (02:33)
[2017-05-04 05:47] LABS: Basophils # 0.1 10*3/uL (0.0-0.2); Basophils % 0.3 % (0.0-0.8); Eosinophils # 0.3 10*3/uL (0.0-0.87); Eosinophils % 1.6 % (0.00-10.9); Hematocrit 37.5 VOL% (35.7-47.0); Hemoglobin 12.1 GM/DL (12.0-16.0); Immature Granulocytes % 0.9 %; Immature Granulocytes Absolute 0.17 #; Lymphocytes # 1.5 10*3/uL (1.4-4.0); Lymphocytes % 8.1 % (21.3-54.2); Mean Corpuscular HGB Conc 32.3 GM/DL (32-36); Mean Corpuscular Hemoglobin 29 PG (27-34); Mean Corpuscular Volume 90.8 FL (87-102); Mean Platelet Volume 10.1 FL (9.6-12.0); Monocytes # 1.4 10*3/uL (0.11-0.8); Monocytes % 7.5 % (1.7-12.7); Neutrophils # 15.3 10*3/uL (1.4-7.4); Neutrophils % 81.6 % (38.7-73.9); Platelet Count 533 T/CUMM (130-400); Red Blood Count 4.13 MC/CUMM (3.8-5.5); Red Cell Distribution Width 14.7 % (9.3-17.3); White Blood Count 18.7 T/CUMM (4-12)
--- NOTE | 2017-05-04 06:44 | Oncology Progress Note ---
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 She was admitted with increasing dyspnea that was probably due to a combination of restrictive lung disease, pleural effusion and possibly pneumonia. The CA 125 is still pending that was ordered May 01. She has a normal CEA and a normal CA-19-9 but a CAT scan that demonstrates relatively strong evidence of intra-abdominal carcinomatosis and mass-effect felt to represent at least stage III ovarian cancer until proven otherwise. She is having surprisingly little discomfort at this point. On reviewing her CT of the abdomen and pelvis, I do not believe that she is a candidate for surgery. If she is established to have ovarian cancer, she should be treated initially with neoadjuvant chemotherapy plus Avastin or other targeted therapy such as Niraparib, which has been approved as second line therapy. I would initially consider treating her with paclitaxel and carboplatin, possibly with Avastin although she has bulky disease and it might not be indicated initially until the tumor has shrunk. She is fully oriented and alert. She is prepared for the interventional procedure but it has not actually been scheduled yet. We are holding her n.p.o. Exam - Constitutional Vitals: Period Temp Pulse Resp BP Sys/Arango Pulse Ox Last 24 Hr 96.9 F-98.2 F 82-106 16-22 119-134/58-68 94-99 Results - Labs CBC & BMP: 05/04/17 04:38 05/02/17 04:54
[2017-05-04] MEDS: INSULIN REGULAR 100 UNIT/ML SUBCUT SCH ×2 (08:48→19:35)
[2017-05-04] MEDS: PANTOPRAZOLE 40 MG TABLET PO SCH (08:57)
[2017-05-04] MEDS: LISINOPRIL 10 MG TABLET PO SCH (08:58)
[2017-05-04] MEDS: CLINDAMYCIN INJ 900 MG in PREMIX 1 EACH IV SCH ×2 (09:25→18:34)
--- NOTE | 2017-05-04 10:00 | Hospitalist Progress Note ---
Assessment and Plan (1) Pneumonia Status: Acute Assessment and plan: Continue with broad-spectrum antibiotics. Current Visit: Yes Qualifiers: Pneumonia type: due to Mycoplasma pneumoniae Laterality: left (2) Abdominal pain Status: Acute Current Visit: Yes Qualifiers: Abdominal location: generalized Qualified Code(s): R10.84 - Generalized abdominal pain (3) Abdominal carcinomatosis Status: Acute Current Visit: Yes (4) Acute dyspnea Status: Resolved Assessment and plan: This appears to be improving with oxygen therapy. Lower extremity Dopplers were negative. Pending VQ scan. Current Visit: Yes (5) Morbid obesity Status: Chronic Current Visit: Yes Qualifiers: Obesity type: due to excess calories Qualified Code(s): E66.01 - Morbid ( severe) obesity due to excess calories (6) Hemoptysis Status: Resolved Assessment and plan: History of pneumonia associated with pleural effusion. This is being followed by pulmonary. She is on broad-spectrum antibiotics. Current Visit: Yes (7) Ovarian mass Status: Acute Assessment and plan: Appreciate input from Dr. Dorado. Workup still in progress. Current Visit: Yes Hospitalist: Subjective Interval history: The patient is resting comfortably. She is scheduled to get a CT scan today to do further assessment of the ovarian masses appreciated. Low-grade temperature noted. Exam - Constitutional Vitals: Period Temp Pulse Resp BP Sys/Arango Pulse Ox Last 24 Hr 97 F-100.8 F 84-107 16-24 119-134/58-68 93-99 General appearance: morbidly obese - Head Head exam: Present: normal inspection - Eye Pupils: Present: CONCEPCION - ENT ENT exam: Present: normal exam - Cardiovascular Cardiovascular exam: Present: regular rate and rhythm - GI/Abdominal GI/Abdominal exam: Present: normal bowel sounds - Extremities Exam Extremities exam: Present: normal inspection - Neurological Exam Neurological exam: Present: alert, oriented X3, CN II-XII intact - Psychiatric Psychiatric exam: Present: normal affect, normal mood - Skin Skin exam: Present: normal color Results - Labs CBC & BMP: 05/04/17 04:38 05/02/17 04:54
--- NOTE | 2017-05-04 13:04 | Pulmonology Progress Note ---
Pulmonary - PN: Subj Interval history: Patient is a 46-year-old that comes in with some fever and abdominal discomfort and mild shortness of breath. She has ascites and ovarian mass and is felt to have carcinomatosis. She does have a left lower lobe consolidation and effusion. She is getting antibiotics for pneumonia. She says she had a fairly good weekend without too much discomfort. She does not think her breathing is any worse. Exam (Progress Note) - Constitutional Vitals: Period Temp Pulse Resp BP Sys/Arango Pulse Ox Last 24 Hr 97 F-100.8 F 60-107 16-24 119-136/58-68 93-99 Exam: General appearance: mild distress (The patient is lying in bed comfortably and in no significant distress.) - Head Head exam: Present: normal inspection, normocephalic - Eye Eye exam: Present: EOMI. Absent: scleral icterus Pupils: Present: CONCEPCION - ENT ENT exam: Present: normal exam - Neck Neck exam: Present: normal inspection. Absent: lymphadenopathy - Respiratory Respiratory exam: Present: decreased breath sounds, rales (She does have some crackles in her left base.). Absent: accessory muscle use, wheezes - Cardiovascular Cardiovascular exam: Present: regular rate and rhythm. Absent: gallop, systolic murmur - GI/Abdominal GI/Abdominal exam: Present: ascites, distended, firm (She does have a doughy feeling abdomen.), tenderness (She does have mild tenderness throughout), soft. Absent: organomegaly, rebound - Extremities Exam Extremities exam: Present: edema (She does have mild edema of her legs.). Absent: calf tenderness - Neurological Exam Neurological exam: Present: alert, oriented X3, CN II-XII intact, she has no focal deficits. - Psychiatric Psychiatric exam: Present: normal affect, normal mood - Skin Skin exam: Present: warm, dry Results - Labs CBC & BMP: 05/04/17 04:38 05/02/17 04:54 - Diagnostic Findings Procedure: Chest x-ray: image reviewed by me, report reviewed by me (Her chest x -ray shows haziness and some consolidation left base.) Assessment and Plan (1) Pneumonia Status: Acute Assessment and plan: The patient comes in coughing up some blood-tinged sputum and looks like she has some left lower lobe pneumonia with effusion. She seems to be fairly stable at present. She may need a thoracentesis at some point but this may be difficult to do. Current Visit: Yes Qualifiers: Pneumonia type: due to Mycoplasma pneumoniae Laterality: left (2) Malignant neoplasm of ovary Status: Acute Assessment and plan: She apparently has large ovarian masses and carcinomatosis. She has had an ultrasound of her abdomen. Interventional radiology has been consulted to try to get a tissue diagnosis Current Visit: Yes (3) Abdominal carcinomatosis Status: Acute Assessment and plan: She does have swelling and ascites and a very large abdomen. Current Visit: Yes (4) Morbid obesity Status: Chronic Assessment and plan: The patient is considerably overweight at this point. She did diurese a little. Current Visit: Yes Qualifiers: Obesity type: due to excess calories Qualified Code(s): E66.01 - Morbid ( severe) obesity due to excess calories
--- NOTE | 2017-05-04 13:27 | CT Report ---
CT of the abdomen and pelvis with and without intravenous contrast. Indication: Generalized abdominal and pelvic pain. 100 cc Omni 350. Axial images were obtained with sagittal and coronal reconstructions. Comparison is made to a previous CT of the chest dated April 30, 2017. The heart is upper limits of normal in size. There is pericardial thickening or pericardial effusion seen posteriorly, measuring 9 mm. There is a moderately prominent pleural effusion present on the left, with consolidation containing air bronchograms in the left lower lobe. There is bilateral basilar atelectasis. No pleural effusion on the right. The liver is markedly enlarged with a length of 26 cm. There is severe fatty infiltration of the liver. The gallbladder has been removed. There is ascites present,, around the mesentery, and in the paracolic gutters and pelvis, mild to moderate in amount. The spleen is normal in size. No pancreatic abnormality is identified. The adrenal glands are normal in size and configuration. The kidneys are normal in size, location and contour without focal lesion. The ureters are normal in course and caliber. The urinary bladder is unremarkable. The abdominal aorta is of normal caliber. Within the omentum, there is enhancing soft tissue which is surrounded by fluid having appearance suggesting omental caking. There is a tiny umbilical hernia which contains only fat. Within the pelvis, there are rounded areas of cystic and solid abnormality, appearing to arise from each adnexal region. The one on the right measures approximately 12 cm. The one on the left measures approximately 12 cm. Mild degenerative changes of the spinal column. Impression: 1. Within the pelvis, there are large bilateral mixed cystic and solid masses, appearing to arise from the adnexa. 2. Within the omentum, there is nodular stranding opacity, raising concern for possible omental caking. This most likely occurs with metastatic disease to the peritoneal cavity with inflammation/edema being less likely. 3. Markedly enlarged, severely fatty liver 4. Moderately large left pleural effusion, with atelectasis and infiltrate present at the left lung base. The CT exam was performed using one or more of the following dose reduction techniques: Automated exposure control, adjustment of the mA and/or kV according to patient size, or use of iterative reconstruction technique. PROCEDURE INTERPRETED AT [facility] DEPARTMENT OF RADIOLOGY Final Report Signed by: Dr. Radha Kitchen
--- NOTE | 2017-05-04 14:42 | IR History and Physical Update ---
IR Pre-Procedure - History and Physical H&P was reviewed, the patient examined and there: are no changes in the patients condition since last H&P was completed. Reason for procedure:: 46 yo F with bilateral adenexal masses and omental implants. Only pertinent imaging available is an MRI from 04/08/[address] chest 04/30/17. I ordered a CT abdomen and pelvis earlier today and it shows omental implants that are safe and satisfactory targets for biopsy. - Dictation Physical: refer to H&P completed by admitting physician - Physical Exam Vital Signs: Last Vital Signs Temp 98.3 F 05/04/17 11:16 Pulse 93 H 05/04/17 13:25 Resp 16 05/04/17 13:25 BP 136/60 05/04/17 11:16 Pulse Ox 98 05/04/17 13:25 Mental Status: alert and oriented - Sedation IR anesthesia plan for sedation: none ASA Class: II - Risks Risks: Procedures explained. Risks discussed include, but not limited to, the following:[pain, bleeding ] All questions answered. The following alternatives were discussed:[none ] Risks and benefits discussed with: patient Consent obtained from: patient Assessment and Plan - Time spent with patient Time spent with patient: Less than 30 minutes (1) Abdominal carcinomatosis Status: Acute Assessment and plan: A: Abdominal carcinomatosis with omental implants P: Plan CT guided needle biopsy of omental mass tomorrow. Current Visit: Yes
[2017-05-04] MEDS: MULTIVITAMIN (CENTRUM) TABLET PO SCH (15:06)
[2017-05-04] MEDS: DOCUSATE/SENNA 50-8.6 MG TABLET PO SCH (15:06)
[2017-05-04] MEDS: METHOCARBAMOL 750 MG TABLET PO SCH ×3 (15:06→20:42)
[2017-05-04] MEDS: AZITHROMYCIN 250 MG TABLET PO SCH (15:39)
[2017-05-05] MEDS ORDERED: DIAZEPAM 5 MG TABLET PO ONE ×2 (00:01→07:00)
[2017-05-05] MEDS: CLINDAMYCIN INJ 900 MG in PREMIX 1 EACH IV SCH ×3 (02:00→18:39)
[2017-05-05] MEDS: cefTRIAXone 1,000 MG in SODIUM CHLORIDE 0.9% 100 ML IV SCH (02:00)
[2017-05-05] MEDS: ALBUTEROL 2.5 MG/3 ML NEB RESP TX SCH ×3 (02:08→19:35)
[2017-05-05 06:15] LABS: Basophils # 0.1 10*3/uL (0.0-0.2); Basophils % 0.2 % (0.0-0.8); Eosinophils # 0.2 10*3/uL (0.0-0.87); Eosinophils % 1.1 % (0.00-10.9); Hematocrit 36.6 VOL% (35.7-47.0); Hemoglobin 12.1 GM/DL (12.0-16.0); Immature Granulocytes % 0.9 %; Immature Granulocytes Absolute 0.19 #; Lymphocytes # 1.5 10*3/uL (1.4-4.0); Lymphocytes % 7.1 % (21.3-54.2); Mean Corpuscular HGB Conc 33.1 GM/DL (32-36); Mean Corpuscular Hemoglobin 30 PG (27-34); Mean Corpuscular Volume 89.9 FL (87-102); Monocytes # 1.7 10*3/uL (0.11-0.8); Monocytes % 8.4 % (1.7-12.7); Neutrophils # 16.8 10*3/uL (1.4-7.4); Neutrophils % 82.3 % (38.7-73.9); Platelet Count 472 T/CUMM (130-400); Red Blood Count 4.07 MC/CUMM (3.8-5.5); Red Cell Distribution Width 14.8 % (9.3-17.3); White Blood Count 20.5 T/CUMM (4-12)
[2017-05-05 06:37] LABS: Calcium 7.6 MG/DL (8.5-10.1); Potassium 3.5 MMOL/L (3.5-5.1)
--- NOTE | 2017-05-05 06:54 | Hospitalist Progress Note ---
Assessment and Plan (1) Abdominal carcinomatosis Status: Acute Assessment and plan: Presumptive ovarian source associated with ascites. Current Visit: Yes (2) Morbid obesity Status: Chronic Assessment and plan: Impaired glucose tolerance. Metabolic alkalosis associated with secondary alveolar hypoventilation with low-grade bronchospasm. Current Visit: Yes Qualifiers: Obesity type: due to excess calories Qualified Code(s): E66.01 - Morbid ( severe) obesity due to excess calories Hospitalist: Subjective Interval history: 46-year-old female with previously documented pelvic mass who had been scheduled for evaluation at [facility]. She presented with increasing shortness of breath associated with increasing abdominal girth to the [facility] and was referred for admission here. CT scan done here demonstrates adnexal mass, caking of the peritoneum with marked fatty liver and a left sided pleural effusion with compressive atelectasis. Her initial blood gases showed CO2 retention with a probable metabolic alkalosis. This has by CO2 content been progressive since admission. She is scheduled for an omental biopsy today. She continues to have bronchospasm with a maximum temperature yesterday 100.8 and otherwise stable vital signs. Exam - Constitutional Vitals: Period Temp Pulse Resp BP Sys/Arango Pulse Ox Last 24 Hr 97.3 F-100.8 F 60-107 16-24 119-138/56-75 90-99 General appearance: morbidly obese - Respiratory Respiratory exam: Present: wheezes. Absent: rales, rhonchi - Cardiovascular Cardiovascular exam: Present: regular rate and rhythm - GI/Abdominal GI/Abdominal exam: Present: ascites. Absent: tenderness, rebound - Extremities Exam Extremities exam: Absent: edema - Neurological Exam Neurological exam: Present: alert, oriented X3 Results - Labs CBC & BMP: 05/05/17 05:50 05/05/17 05:51
[2017-05-05 07:11] LABS: Band Neutrophils 6 % (0-10); Eosinophils 1 % (0-10); Hypochromasia 1+; Lymphocytes 5 % (20-55); Microcytosis Slight; Platelet Estimate Adequate; Segmented Neutrophils 81 % (50-85); Total Cells Counted 100
--- NOTE | 2017-05-05 07:53 | Oncology Progress Note ---
Oncology Subjective PN Interval history: Ms. Campos was admitted with shortness of breath, suspected pneumonia and with abdominal distention and documented pelvic mass effect suggesting carcinomatosis. She has been evaluated for this, partly, but we need a tissue diagnosis. We also need additional tumor markers. She may eventually be a candidate for surgery but it does not appear that she is presently unless the biopsy shows that this is a benign process. I doubt this. I suspect this is going to be a gynecologic malignancy and most likely ovarian. I have also ordered BRCA studies and they are pending. She is fully oriented and alert. She has no focal neurologic deficits. She has morbid obesity. Her respirations are unlabored and her chest moves symmetrically with respiration. The ovarian cancer antigen ordered on May 01 is still pending. Ms. Jarrett is apparently going to have a biopsy done today by interventional radiology. Her lab work today includes white cell count 20,500 with a hemoglobin of 12.1 and a platelet count of 472,000. Her basic metabolic profile is stable with a low serum calcium of 7.6 which she has a previously documented low albumin of 2.5. Exam - Constitutional Vitals: Period Temp Pulse Resp BP Sys/Arango Pulse Ox Last 24 Hr 97.3 F-99.1 F 60-100 16-24 119-139/56-75 90-98 Results - Labs CBC & BMP: 05/05/17 05:50 05/05/17 05:51
[2017-05-05 08:02] LABS: INR 1.3; PT Patient Result 13.9 SECS
--- NOTE | 2017-05-05 09:26 | Post Interventional Procedure ---
Pre-op diagnosis: Omental carcinomatosis Post-op diagnosis: same Procedure: CT guided biopsy omental mass Radiologist: Dago Chen Anesthesia: local Specimens: other (3 x 18 ga cores) Estimated blood loss: none Complications: none Condition: stable Assessment and Plan - Time spent with patient Time spent with patient: Less than 30 minutes (1) Abdominal carcinomatosis Status: Acute Assessment and plan: A: Abdominal carcinomatosis with omental implants P: Plan CT guided needle biopsy of omental mass tomorrow. 09:26 @ 05/05/17: Successful biopsy, await path. Current Visit: Yes
[2017-05-05] MEDS: AZITHROMYCIN 250 MG TABLET PO SCH (11:23)
[2017-05-05] MEDS: DOCUSATE/SENNA 50-8.6 MG TABLET PO SCH (11:23)
[2017-05-05] MEDS: PANTOPRAZOLE 40 MG TABLET PO SCH (11:23)
[2017-05-05] MEDS: MULTIVITAMIN (CENTRUM) TABLET PO SCH (11:23)
[2017-05-05] MEDS: LISINOPRIL 10 MG TABLET PO SCH (11:23)
[2017-05-05] MEDS: METHOCARBAMOL 750 MG TABLET PO SCH ×3 (11:43→21:20)
--- NOTE | 2017-05-05 13:11 | CT Report ---
CT biopsy abdomen percutaneous Indication: Omental mass. CT-GUIDED BIOPSY OF OMENTAL MASS Description: A formal timeout was performed. Patient was placed supine on the CT table and hospice nurse practitioner imaging obtained. The anterior abdominal wall skin overlying the target lesion was prepped and draped in a sterile fashion. 5 cc 1% lidocaine was injected. Under CT fluoroscopic guidance, a 17-gauge guide needle was advanced into the lesion. Multiple 18-gauge core biopsies were obtained. Specimen was sent for routine pathology. The needle was removed and final CT imaging showed no evidence of hematoma. Patient tolerated the procedure well. Specimen: 3 x 18 gauge core samples omental mass. Impression: CT-guided biopsy of omental mass. PROCEDURE INTERPRETED AT [facility] DEPARTMENT OF RADIOLOGY Final Report Signed by: Dago Chen M.D.
--- NOTE | 2017-05-05 14:51 | Pulmonology Progress Note ---
Pulmonary - PN: Subj Interval history: Patient is a 46-year-old that comes in with some fever and abdominal discomfort and mild shortness of breath. She has ascites and ovarian mass and is felt to have carcinomatosis. She does have a left lower lobe consolidation and effusion. She is getting antibiotics for pneumonia. She says she is not having any increased chest pain or shortness of breath. Today she is going down for a CT biopsy of an omental mass. She does not seem to be having any increased pain at present Exam (Progress Note) - Constitutional Vitals: Period Temp Pulse Resp BP Sys/Arango Pulse Ox Last 24 Hr 97.3 F-99.1 F 92-100 16-24 118-139/56-75 90-98 Exam: General appearance: mild distress (The patient is lying in bed comfortably and in no significant distress. She still arouses easily and is comfortable) - Head Head exam: Present: normal inspection, normocephalic - Eye Eye exam: Present: EOMI. Absent: scleral icterus Pupils: Present: CONCEPCION - ENT ENT exam: Present: normal exam - Neck Neck exam: Present: normal inspection. Absent: lymphadenopathy - Respiratory Respiratory exam: Present: decreased breath sounds, rales (She does have some crackles in her left base.). Absent: accessory muscle use, wheezes - Cardiovascular Cardiovascular exam: Present: regular rate and rhythm. Absent: gallop, systolic murmur - GI/Abdominal GI/Abdominal exam: Present: ascites, distended, firm (She does have a doughy feeling abdomen.), tenderness (She does have mild tenderness throughout), soft. Absent: organomegaly, rebound - Extremities Exam Extremities exam: Present: edema (She does have mild edema of her legs.). Absent: calf tenderness - Neurological Exam Neurological exam: Present: alert, oriented X3, CN II-XII intact, she has no focal deficits. - Psychiatric Psychiatric exam: Present: normal affect, normal mood - Skin Skin exam: Present: warm, dry Results - Labs CBC & BMP: 05/05/17 05:50 05/05/17 05:51 Assessment and Plan (1) Pneumonia Status: Acute Assessment and plan: The patient comes in coughing up some blood-tinged sputum and looks like she has some left lower lobe pneumonia with effusion. She seems to be fairly stable at present. She may need a thoracentesis at some point but this may be difficult to do. Overall her breathing is stable. Current Visit: Yes Qualifiers: Pneumonia type: due to Mycoplasma pneumoniae Laterality: left (2) Malignant neoplasm of ovary Status: Acute Assessment and plan: She apparently has large ovarian masses and carcinomatosis. She is going down for a CT-guided biopsy of a mass in her omentum. Hopefully we can get a tissue diagnosis. Current Visit: Yes (3) Abdominal carcinomatosis Status: Acute Assessment and plan: She does have swelling and ascites and a very large abdomen. Current Visit: Yes (4) Morbid obesity Status: Chronic Assessment and plan: The patient is considerably overweight at this point. She did diurese a little. She looks comfortable at present. Current Visit: Yes
[2017-05-05] MEDS: INSULIN REGULAR 100 UNIT/ML SUBCUT SCH (16:42)
[2017-05-06] MEDS: ALBUTEROL 2.5 MG/3 ML NEB RESP TX SCH ×4 (00:22→19:50)
[2017-05-06] MEDS: CLINDAMYCIN INJ 900 MG in PREMIX 1 EACH IV SCH ×3 (00:24→18:55)
[2017-05-06] MEDS: cefTRIAXone 1,000 MG in SODIUM CHLORIDE 0.9% 100 ML IV SCH (01:50)
--- NOTE | 2017-05-06 07:04 | Hospitalist Progress Note ---
Assessment and Plan (1) Abdominal carcinomatosis Status: Acute Assessment and plan: Presumptive ovarian source associated with ascites. Omental biopsy completed 05 May. Current Visit: Yes (2) Morbid obesity Status: Chronic Assessment and plan: Impaired glucose tolerance. Metabolic alkalosis associated with secondary alveolar hypoventilation with low-grade bronchospasm. Current Visit: Yes Hospitalist: Subjective Interval history: 46-year-old female with a previously documented pelvic mass who had been scheduled for outpatient evaluation at [facility]. She presented with increasing shortness of breath associated with increased abdominal girth. CT scan done here demonstrates an adnexal mass caking of the omentum with probable peritoneal seeding. On 05 May the patient underwent omental biopsy results which are pending. She continues to have shortness of breath on exertion however her bronchospasm has improved substantially today compared to yesterday per she was afebrile overnight. Exam - Constitutional Vitals: Period Temp Pulse Resp BP Sys/Arango Pulse Ox Last 24 Hr 97.7 F-99.5 F 72-98 16-24 113-165/56-96 91-99 General appearance: morbidly obese - Respiratory Respiratory exam: Present: clear to auscultation bilaterally. Absent: rales, rhonchi, wheezes - Cardiovascular Cardiovascular exam: Present: regular rate and rhythm - GI/Abdominal GI/Abdominal exam: Present: normal bowel sounds, ascites. Absent: tenderness - Extremities Exam Extremities exam: Absent: edema - Neurological Exam Neurological exam: Present: alert, oriented X3 Results - Labs CBC & BMP: 05/05/17 05:50 05/05/17 05:51
--- NOTE | 2017-05-06 07:08 | Oncology Progress Note ---
Oncology Subjective PN Interval history: Ms. Jarrett was admitted with dyspnea, abdominal distention and masses documented on MRI and ultrasound of her abdomen. This was suspected to be a gynecologic tumor, probably ovarian cancer. A CT-guided biopsy was done yesterday. Results are pending. She continues to have dyspnea and lower abdominal pain and discomfort and she has had some constipation. The CA 125 level is back this morning. It is 6301. The biopsy of the intra- abdominal mass-effect is pending. She is oriented and alert. She is morbidly obese. She is tachypnea. If this turns out to be ovarian cancer, as I suspect it will, we will need a Mediport catheter to proceed with chemotherapy which may either be palliative or possibly neoadjuvant since at some point she could be considered for surgical debulking or resection. BRCA1 and 2 studies have been ordered. I have no indication that there back, or when they will be back but this is not testing that is necessary to institute the initial chemotherapy. Exam - Constitutional Vitals: Period Temp Pulse Resp BP Sys/Arango Pulse Ox Last 24 Hr 97.7 F-99.5 F 72-98 16-24 113-165/56-96 91-99 Results - Labs CBC & BMP: 05/05/17 05:50 05/05/17 05:51
[2017-05-06] MEDS: LISINOPRIL 10 MG TABLET PO SCH (08:42)
[2017-05-06] MEDS: MULTIVITAMIN (CENTRUM) TABLET PO SCH (08:42)
[2017-05-06] MEDS: AZITHROMYCIN 250 MG TABLET PO SCH (08:42)
[2017-05-06] MEDS: DOCUSATE/SENNA 50-8.6 MG TABLET PO SCH (08:43)
[2017-05-06] MEDS: PANTOPRAZOLE 40 MG TABLET PO SCH (08:43)
[2017-05-06] MEDS: METHOCARBAMOL 750 MG TABLET PO SCH ×3 (08:43→20:45)
[2017-05-06] MEDS: INSULIN REGULAR 100 UNIT/ML SUBCUT SCH ×2 (08:45→17:49)
--- NOTE | 2017-05-06 15:11 | Pulmonology Progress Note ---
Pulmonary - PN: Subj Interval history: Patient is a 46-year-old that comes in with some fever and abdominal discomfort and mild shortness of breath. She has ascites and ovarian mass and is felt to have carcinomatosis. She does have a left lower lobe consolidation and effusion. She is getting antibiotics for pneumonia. She says she is not having any increased chest pain or shortness of breath. She still says her breathing is doing reasonably well. She is sore from the biopsy yesterday. Otherwise she is about the same. Exam (Progress Note) - Constitutional Vitals: Period Temp Pulse Resp BP Sys/Arango Pulse Ox Last 24 Hr 97.1 F-99.5 F 72-95 20-24 113-165/56-96 92-99 Exam: General appearance: mild distress (The patient is lying in bed comfortably and in no significant distress. She still arouses easily and is comfortable) - Head Head exam: Present: normal inspection, normocephalic - Eye Eye exam: Present: EOMI. Absent: scleral icterus Pupils: Present: CONCEPCION - ENT ENT exam: Present: normal exam - Neck Neck exam: Present: normal inspection. Absent: lymphadenopathy - Respiratory Respiratory exam: Present: She still has decreased breath sounds in the bases but is hard to examine lying in bed. She does not have any wheezing. - Cardiovascular Cardiovascular exam: Present: regular rate and rhythm. Absent: gallop, systolic murmur - GI/Abdominal GI/Abdominal exam: Present: ascites, distended, firm (She does have a doughy feeling abdomen.), tenderness (She does have mild tenderness throughout), soft. Absent: organomegaly, rebound - Extremities Exam Extremities exam: Present: edema (She does have mild edema of her legs.). Absent: calf tenderness - Neurological Exam Neurological exam: Present: alert, oriented X3, CN II-XII intact, she has no focal deficits. - Psychiatric Psychiatric exam: Present: normal affect, normal mood - Skin Skin exam: Present: warm, dry Results - Labs CBC & BMP: 05/05/17 05:50 05/05/17 05:51 Assessment and Plan (1) Pneumonia Status: Acute Assessment and plan: The patient comes in coughing up some blood-tinged sputum and looks like she has some left lower lobe pneumonia with effusion. She seems to be fairly stable at present. Her breathing seems to be stable. Current Visit: Yes Qualifiers: Pneumonia type: due to Mycoplasma pneumoniae Laterality: left (2) Malignant neoplasm of ovary Status: Acute Assessment and plan: She apparently has large ovarian masses and carcinomatosis. She had a biopsy of her abdominal mass yesterday. She probably has ovarian cancer. Current Visit: Yes (3) Abdominal carcinomatosis Status: Acute Assessment and plan: She does have swelling and ascites and a very large abdomen. Current Visit: Yes (4) Morbid obesity Status: Chronic Assessment and plan: The patient is considerably overweight at this point. She did diurese a little. She looks comfortable at present. Current Visit: Yes
--- NOTE | 2017-05-06 18:17 | Pathology Report from [facility] ---
[facility] ACCESSION # : [id number] PATIENT NAME : Rachid Jarrett ORDERING DR : ARCENIO KING MD CLINICAL HX: Abdominal mass (omental) POST-OP DX: Same SPECIMEN INFO: Abd BX x 3 GROSS DESCRIPTION: The specimen is received in formalin labeled with the patients name RACHID JARRETT and ABD MASS BX consists of three samanta-shaped tissue fragments measuring 0.2 x 0.1 cm. Submitted in one cassette. DIAGNOSIS FOR RACHID JARRETT: OMENTAL MASS, CT GUIDED NEEDLE BIOPSY: Metastatic adenocarcinoma, papillary pattern with psammoma bodies. Tumor immunophenotype CA -125+/ ER+/ PLAP+/ Calretinin- is c/w [employer]OR [employer] origin. COLLECTED DATE: 05/05/2017 [facility] REPORT DATE: 05/06/2017 ELECTRONICALLY SIGNED BY: Riky Vera M.D. 05/06/2017 - 14:43:22 [facility]
[2017-05-07] MEDS: ALBUTEROL 2.5 MG/3 ML NEB RESP TX SCH ×5 (00:20→19:36)
[2017-05-07] MEDS: CLINDAMYCIN INJ 900 MG in PREMIX 1 EACH IV SCH (01:05)
[2017-05-07] MEDS: cefTRIAXone 1,000 MG in SODIUM CHLORIDE 0.9% 100 ML IV SCH (01:40)
[2017-05-07 05:14] LABS: Basophils # 0.1 10*3/uL (0.0-0.2); Basophils % 0.4 % (0.0-0.8); Eosinophils # 0.9 10*3/uL (0.0-0.87); Eosinophils % 6.7 % (0.00-10.9); Hematocrit 37.1 VOL% (35.7-47.0); Hemoglobin 12.1 GM/DL (12.0-16.0); Immature Granulocytes % 1.2 %; Immature Granulocytes Absolute 0.15 #; Lymphocytes # 1.5 10*3/uL (1.4-4.0); Lymphocytes % 11.1 % (21.3-54.2); Mean Corpuscular HGB Conc 32.6 GM/DL (32-36); Mean Corpuscular Hemoglobin 29 PG (27-34); Mean Corpuscular Volume 90.3 FL (87-102); Monocytes # 1.4 10*3/uL (0.11-0.8); Monocytes % 10.5 % (1.7-12.7); Neutrophils # 9.1 10*3/uL (1.4-7.4); Neutrophils % 70.1 % (38.7-73.9); Platelet Count 489 T/CUMM (130-400); Red Blood Count 4.11 MC/CUMM (3.8-5.5); Red Cell Distribution Width 14.6 % (9.3-17.3)
[2017-05-07 05:40] LABS: Calcium 8.1 MG/DL (8.5-10.1); Magnesium 1.7 MG/DL (1.8-2.4); Osmolality,Calculated 265.2 MOS/KG (273-304); Potassium 3.8 MMOL/L (3.5-5.1)
--- NOTE | 2017-05-07 06:58 | Oncology Progress Note ---
Oncology Subjective PN Interval history: Patient admitted with dyspnea and at least initially felt to have mycoplasma pneumonia. Subsequently found to have carcinomatosis that was very suspicious for gynecologic malignancy. The pathology report from the CT-guided needle biopsy has returned. This is ovarian cancer. The pathology report number is [id number]. She will need a Mediport catheter and I am giving her information on ovarian cancer as well as on chemotherapy using Taxol and carboplatin. The usual dose of these medications is Taxol 175 mg/m and carboplatin 6 AUC given every 3 weeks. I am considering Avastin as well but at least initially we may be treating with Taxol and carboplatin without the use of Avastin until we decrease the tumor bulk somewhat. BRCA mutation studies are still pending. I am placing a consult for a PICC line. My plan will be to set up a Mediport catheter placement after the first course. Exam - Constitutional Vitals: Period Temp Pulse Resp BP Sys/Arango Pulse Ox Last 24 Hr 96.3 F-98.3 F 75-95 20-24 116-151/57-73 92-99 Results - Labs CBC & BMP: 05/07/17 04:14 05/07/17 04:14
--- NOTE | 2017-05-07 07:47 | Hospitalist Progress Note ---
Assessment and Plan (1) Abdominal carcinomatosis Status: Acute Assessment and plan: Presumptive ovarian source associated with ascites. Omental biopsy completed 05 May with path report consistent with ovarian carcinoma. Current Visit: Yes (2) Morbid obesity Status: Chronic Assessment and plan: Impaired glucose tolerance. Metabolic alkalosis associated with secondary alveolar hypoventilation with low-grade bronchospasm. Current Visit: Yes Hospitalist: Subjective Interval history: 46-year-old female with previously documented pelvic mass who was scheduled for evaluation at [facility]. She presented with increasing shortness of breath associated with increased abdominal girth. CT scan done here demonstrated adnexal mass with caking of the omentum and probable peritoneal seeding. Patient on 05 May underwent omental biopsy which demonstrated on path report a pattern consistent with ovarian cancer. Her CA125 returned at 6301. She has been seen by oncology and pulmonary. She is subjectively more short of breath this morning than yesterday however her O2 saturations are normal. Remainder of vital signs are normal as well. Her chest exam is stable with minimal wheezing at this time. Exam - Constitutional Vitals: Period Temp Pulse Resp BP Sys/Arango Pulse Ox Last 24 Hr 96.3 F-98.3 F 75-90 20-24 116-134/57-73 92-97 General appearance: morbidly obese - Respiratory Respiratory exam: Present: wheezes (Faint end expiratory wheezes only.). Absent : rales, rhonchi - Cardiovascular Cardiovascular exam: Present: regular rate and rhythm - GI/Abdominal GI/Abdominal exam: Present: normal bowel sounds. Absent: tenderness - Extremities Exam Extremities exam: Absent: edema - Neurological Exam Neurological exam: Present: alert, oriented X3 Results - Labs CBC & BMP: 05/07/17 04:14 05/07/17 04:14 Labs: Magnesium 1.7
[2017-05-07] MEDS: INSULIN REGULAR 100 UNIT/ML SUBCUT SCH ×2 (09:04→16:58)
--- NOTE | 2017-05-07 09:14 | Pulmonology Progress Note ---
Pulmonary - PN: Subj Interval history: Patient is a 46-year-old that comes in with some fever and abdominal discomfort and mild shortness of breath. She has ascites and ovarian mass and is felt to have carcinomatosis. She does have a left lower lobe consolidation and effusion. She is getting antibiotics for pneumonia. Her pathology did come back consistent with ovarian cancer. She says she is coughing still but breathing a little better. She is mainly complaining of tightness of her abdomen. She will probably restart chemotherapy soon. Exam (Progress Note) - Constitutional Vitals: Period Temp Pulse Resp BP Sys/Arango Pulse Ox Last 24 Hr 96.3 F-98.3 F 75-90 20-24 113-134/57-73 92-97 Exam: General appearance: mild distress (The patient is sitting up and looks a little more comfortable. ) - Head Head exam: Present: normal inspection, normocephalic - Eye Eye exam: Present: EOMI. Absent: scleral icterus Pupils: Present: CONCEPCION - ENT ENT exam: Present: normal exam - Neck Neck exam: Present: normal inspection. Absent: lymphadenopathy - Respiratory Respiratory exam: Present: She still has decreased breath sounds in the bases but is hard to examine lying in bed. She does not have any wheezing. - Cardiovascular Cardiovascular exam: Present: regular rate and rhythm. Absent: gallop, systolic murmur - GI/Abdominal GI/Abdominal exam: Present: She still has a very swollen firm abdomen. - Extremities Exam Extremities exam: Present: edema (She does have mild edema of her legs.). Absent: calf tenderness - Neurological Exam Neurological exam: Present: alert, oriented X3, CN II-XII intact, she has no focal deficits. - Psychiatric Psychiatric exam: Present: normal affect, normal mood - Skin Skin exam: Present: warm, dry Results - Labs CBC & BMP: 05/07/17 04:14 05/07/17 04:14 Assessment and Plan (1) Pneumonia Status: Acute Assessment and plan: The patient comes in coughing up some blood-tinged sputum and looks like she has some left lower lobe pneumonia with effusion. She seems to be fairly stable at present. She still is breathing okay although she cannot do much. Current Visit: Yes Qualifiers: Pneumonia type: due to Mycoplasma pneumoniae Laterality: left (2) Malignant neoplasm of ovary Status: Acute Assessment and plan: She apparently has large ovarian masses and carcinomatosis. Her biopsy is consistent with ovarian cancer. She will start chemotherapy soon. Current Visit: Yes (3) Abdominal carcinomatosis Status: Acute Assessment and plan: She does have swelling and ascites and a very large abdomen. She complains of tightness of her abdomen and some discomfort. Current Visit: Yes (4) Morbid obesity Status: Chronic Assessment and plan: The patient is considerably overweight at this point. She did diurese a little. She looks comfortable at present. Current Visit: Yes
--- NOTE | 2017-05-07 09:23 | Post Interventional Procedure ---
Pre-op diagnosis: Morbid obesity, chemo for adenoca, no PIV access Post-op diagnosis: same Procedure: PICC LUE Flouroscopy: 0.1 min Radiologist: Dago Chen Anesthesia: local Specimens: none sent Estimated blood loss: none Complications: none Condition: stable Assessment and Plan - Time spent with patient Time spent with patient: Less than 30 minutes (1) Abdominal carcinomatosis Status: Acute Assessment and plan: A: Abdominal carcinomatosis with omental implants P: Plan CT guided needle biopsy of omental mass tomorrow. 09:26 @ 05/05/17: Successful biopsy, await path. Current Visit: Yes
[2017-05-07] MEDS: AZITHROMYCIN 250 MG TABLET PO SCH (12:48)
[2017-05-07] MEDS: PANTOPRAZOLE 40 MG TABLET PO SCH (12:48)
[2017-05-07] MEDS: LISINOPRIL 10 MG TABLET PO SCH (12:49)
[2017-05-07] MEDS: MULTIVITAMIN (CENTRUM) TABLET PO SCH (12:49)
[2017-05-07] MEDS: DOCUSATE/SENNA 50-8.6 MG TABLET PO SCH (12:49)
[2017-05-07] MEDS: METHOCARBAMOL 750 MG TABLET PO SCH ×3 (12:49→21:12)
--- NOTE | 2017-05-07 14:13 | Interventional Radiology Rpt ---
IR PICC line insertion, US guide vascular access Indication: Adenocarcinoma. Chemotherapy required. No peripheral IV access. PICC LINE Description: A formal timeout was performed. Maximum sterile barrier technique was used. Sonographic evaluation of the left upper extremity demonstrates patent and compressible basilar vein. The upper arm was prepped and draped in sterile fashion. 3 cc 1% lidocaine was administered subcutaneously. Under sonographic guidance, a micropuncture needle was advanced into the vein. A captured sonographic image documents the position of the needle. Needle was exchanged over a wire for a peel-away sheath. A dual lumen power PICC, cut to 48 cm, was advanced over the wire until the tip was at the RA-SVC junction. The position of the catheter was confirmed with fluoroscopic guidance and an image stored in PACS. The wire and sheath were removed. Both ports of the PICC were aspirated and flushed with heparinized saline. The device was secured with a StatLock. Fluoroscopy: 0.1 minute. Impression: PICC line ready for immediate use. Routine catheter care. PROCEDURE INTERPRETED AT [facility] Final Report Signed by: Dago Chen M.D.
[2017-05-07] MEDS ORDERED: ZALEPLON 5 MG CAPSULE PO PRN (20:09)
[2017-05-08] MEDS: ALBUTEROL 2.5 MG/3 ML NEB RESP TX SCH ×5 (00:21→22:50)
[2017-05-08] MEDS: cefTRIAXone 1,000 MG in SODIUM CHLORIDE 0.9% 100 ML IV SCH (01:55)
[2017-05-08] MEDS ORDERED: GRANISETRON 1 MG/1 ML VIAL IV ONE (07:16)
[2017-05-08] MEDS ORDERED: DEXAMETHASONE 10 MG/1 ML VIAL IV ONE (07:18)
--- NOTE | 2017-05-08 07:27 | Oncology Progress Note ---
Oncology Subjective PN Interval history: Ms. Jarrett has what appears to be stage IV ovarian cancer because of a pleural effusion and because of carcinomatosis within her abdomen that has been biopsy- proven to be ovarian cancer. She had a PICC line placed yesterday. We can proceed with chemotherapy today and she can go home. I have ordered a BRCA 1 and 2 screen on this patient and it has not been done. It has not even been actually ordered as far as I can tell. I will reorder it at a later date. We will proceed with chemotherapy today. I have intentionally reduced the calculated doses on this patient. The Taxol dose will be 300 mg IV and the carboplatin will be 750 mg IV. She is morbidly obese and I will consider dose escalation depending on how she tolerates this initial dose of Taxol and carboplatin. She needs a Mediport catheter placed but this can be done outpatient. In addition she needs follow-up with me in 2 weeks and I will set this up. I am proceeding with chemotherapy today using Taxol and carboplatin. She remains extremely debilitated and so we will observe her through the weekend and consider discharge Thursday. I will take her in transfer at this point. On physical examination she is morbidly obese, weighing 345 pounds she is 5 feet tall. She remains tachypneic. She remains prostrate and for the most part is remaining in bed. She is fully oriented and alert however. See my orders. Exam - Constitutional Vitals: Period Temp Pulse Resp BP Sys/Arango Pulse Ox Last 24 Hr 96.8 F-98.6 F 65-102 18-24 98-160/53-82 91-98 Results - Labs CBC & BMP: 05/07/17 04:14 05/07/17 04:14
[2017-05-08] MEDS ORDERED: DEXAMETHASONE INJ 20 MG in SODIUM CHLORIDE 0.9% 50 ML IV ONE (08:00)
[2017-05-08] MEDS: INSULIN REGULAR 100 UNIT/ML SUBCUT SCH ×2 (08:20→16:22)
[2017-05-08] MEDS: MULTIVITAMIN (CENTRUM) TABLET PO SCH (08:42)
[2017-05-08] MEDS: LISINOPRIL 10 MG TABLET PO SCH (08:43)
[2017-05-08] MEDS: METHOCARBAMOL 750 MG TABLET PO SCH ×3 (08:43→20:37)
[2017-05-08] MEDS: ERGOCALCIFEROL 50,000 UNIT CAPSULE PO SCH (08:43)
[2017-05-08] MEDS: PANTOPRAZOLE 40 MG TABLET PO SCH (08:43)
[2017-05-08] MEDS: DOCUSATE/SENNA 50-8.6 MG TABLET PO SCH (08:44)
[2017-05-08] MEDS: AZITHROMYCIN 250 MG TABLET PO SCH (08:44)
--- NOTE | 2017-05-08 08:52 | Pulmonology Progress Note ---
Pulmonary - PN: Subj Interval history: Patient is a 46-year-old that comes in with some fever and abdominal discomfort and mild shortness of breath. She has ascites and ovarian mass and is felt to have carcinomatosis. She does have a left lower lobe consolidation and effusion. She is getting antibiotics for pneumonia. Her pathology did come back consistent with ovarian cancer. She did get a line placed yesterday. She is going to start chemotherapy today. She still has some abdominal fullness and tightness. Her shortness of breath is no worse. She still does have some left pleural effusion but is no worse Exam (Progress Note) - Constitutional Vitals: Period Temp Pulse Resp BP Sys/Arango Pulse Ox Last 24 Hr 96.8 F-98.6 F 65-110 16-24 98-160/53-82 91-98 Exam: General appearance: mild distress (The patient is sitting up and looks a little more comfortable. ) - Head Head exam: Present: normal inspection, normocephalic - Eye Eye exam: Present: EOMI. Absent: scleral icterus Pupils: Present: CONCEPCION - ENT ENT exam: Present: normal exam - Neck Neck exam: Present: normal inspection. Absent: lymphadenopathy - Respiratory Respiratory exam: Present: She still has decreased breath sounds in the bases but is hard to examine lying in bed. She does not have any wheezing. - Cardiovascular Cardiovascular exam: Present: regular rate and rhythm. Absent: gallop, systolic murmur - GI/Abdominal GI/Abdominal exam: Present: She still has a very swollen firm abdomen. She does have a very large abdomen - Extremities Exam Extremities exam: Present: edema (She does have mild edema of her legs.). Absent: calf tenderness - Neurological Exam Neurological exam: Present: alert, oriented X3, CN II-XII intact, she has no focal deficits. - Psychiatric Psychiatric exam: Present: normal affect, normal mood - Skin Skin exam: Present: warm, dry Results - Labs CBC & BMP: 05/07/17 04:14 05/07/17 04:14 Assessment and Plan (1) Pneumonia Status: Acute Assessment and plan: The patient came in coughing up some sputum but she is better now. She may have mild left lower lobe pneumonia that is better. She mainly has a left pleural effusion probably related to her ovarian cancer and fluid below her diaphragm. She may need a tap of her shortness of breath gets worse. This will be difficult because of her size. She is relatively comfortable at present. Current Visit: Yes Qualifiers: Pneumonia type: due to Mycoplasma pneumoniae Laterality: left (2) Malignant neoplasm of ovary Status: Acute Assessment and plan: She apparently has large ovarian masses and carcinomatosis. Her biopsy is consistent with ovarian cancer. She will start chemotherapy today. Current Visit: Yes (3) Abdominal carcinomatosis Status: Acute Assessment and plan: She does have swelling and ascites and a very large abdomen. She complains of tightness of her abdomen and some discomfort. Hopefully the chemotherapy will help this. Current Visit: Yes (4) Morbid obesity Status: Chronic Assessment and plan: The patient is considerably overweight at this point. She did diurese a little. She looks comfortable at present. Current Visit: Yes
[2017-05-08] MEDS ORDERED: PROMETHAZINE INJ 25 MG in SODIUM CHLORIDE 0.9% 50 ML IV PRN (09:32)
[2017-05-08] MEDS ORDERED: BENZTROPINE 2 MG/2 ML AMP IV PRN (09:32)
[2017-05-08] MEDS ORDERED: MYLANTA/LIDO VISC 2:1 300 ML BOTTLE SWISH/SPIT PRN (09:32)
[2017-05-08] MEDS ORDERED: ALUMINUM/MAGNES/SIMETH MAX STR 30 ML UDCUP PO PRN (09:32)
[2017-05-08] MEDS ORDERED: guaiFENesin 200 MG/10 ML UDCUP PO PRN (09:32)
[2017-05-08] MEDS ORDERED: traMADol 50 MG TABLET PO PRN (09:32)
[2017-05-08] MEDS ORDERED: LACTULOSE 20 GM/30 ML UDCUP PO PRN (09:32)
[2017-05-08] MEDS ORDERED: ALPRAZolam 0.25 MG TABLET PO PRN (09:32)
[2017-05-08] MEDS ORDERED: MAGNESIUM HYDROXIDE SUSP 30 ML UDCUP PO PRN (09:32)
[2017-05-08] MEDS ORDERED: ACETAMINOPHEN 325 MG TABLET PO PRN (09:32)
[2017-05-08] MEDS ORDERED: chlorproMAZINE INJ 50 MG in SODIUM CHLORIDE 0.9% 100 ML IV PRN (09:32)
[2017-05-08] MEDS ORDERED: LOPERAMIDE 2 MG CAPSULE PO PRN ×2 (09:32)
[2017-05-08] MEDS ORDERED: diphenhydrAMINE CAP 25 MG CAPSULE PO PRN (09:32)
[2017-05-08] MEDS ORDERED: chlorproMAZINE INJ 25 MG in SODIUM CHLORIDE 0.9% 100 ML IV PRN (09:32)
[2017-05-08] MEDS ORDERED: MYLANTA/LIDO VISC 2:1 300 ML BOTTLE SWISH/SWAL PRN (09:32)
[2017-05-08] MEDS ORDERED: chlorproMAZINE 25 MG TABLET PO PRN (09:32)
[2017-05-08] MEDS: GRANISETRON 1 MG/1 ML VIAL IV SCH ×2 (10:07→10:09)
[2017-05-09] MEDS: cefTRIAXone 1,000 MG in SODIUM CHLORIDE 0.9% 100 ML IV SCH (02:54)
[2017-05-09 05:27] LABS: Basophils % 0.1 % (0.0-0.8); Hematocrit 38.7 VOL% (35.7-47.0); Hemoglobin 12.6 GM/DL (12.0-16.0); Immature Granulocytes % 1.5 %; Immature Granulocytes Absolute 0.13 #; Lymphocytes % 10.8 % (21.3-54.2); Mean Corpuscular HGB Conc 32.6 GM/DL (32-36); Mean Corpuscular Hemoglobin 30 PG (27-34); Mean Corpuscular Volume 90.6 FL (87-102); Mean Platelet Volume 10.9 FL (9.6-12.0); Monocytes # 0.3 10*3/uL (0.11-0.8); Monocytes % 3.5 % (1.7-12.7); Neutrophils # 7.4 10*3/uL (1.4-7.4); Neutrophils % 84.1 % (38.7-73.9); Platelet Count 481 T/CUMM (130-400); Red Blood Count 4.27 MC/CUMM (3.8-5.5); Red Cell Distribution Width 14.6 % (9.3-17.3); White Blood Count 8.8 T/CUMM (4-12)
[2017-05-09 05:55] LABS: Albumin 2.3 G/DL (3.4-5.0); Bilirubin,Total 0.6 MG/DL (0.2-1.0); Calcium 8.4 MG/DL (8.5-10.1); Osmolality,Calculated 271.8 MOS/KG (273-304); Potassium 4.4 MMOL/L (3.5-5.1); Total Protein 6.9 G/DL (6.4-8.3)
[2017-05-09] MEDS: ALBUTEROL 2.5 MG/3 ML NEB RESP TX SCH ×3 (07:01→19:04)
--- NOTE | 2017-05-09 08:29 | Event Note ---
46-year-old lady with metastatic ovarian cancer. History of left pleural effusion. No new complaints. Nothing to add from pulmonary standpoint.
[2017-05-09] MEDS: LISINOPRIL 10 MG TABLET PO SCH (08:56)
[2017-05-09] MEDS: AZITHROMYCIN 250 MG TABLET PO SCH (08:56)
[2017-05-09] MEDS: DOCUSATE/SENNA 50-8.6 MG TABLET PO SCH (08:57)
[2017-05-09] MEDS: MULTIVITAMIN (CENTRUM) TABLET PO SCH (08:57)
[2017-05-09] MEDS: PANTOPRAZOLE 40 MG TABLET PO SCH (08:57)
[2017-05-09] MEDS: METHOCARBAMOL 750 MG TABLET PO SCH ×3 (08:57→20:04)
[2017-05-09] MEDS ORDERED: FUROSEMIDE 40 MG/4 ML VIAL IV ONE (11:14)
[2017-05-09] MEDS: GRANISETRON 1 MG/1 ML VIAL IV SCH (11:15)
[2017-05-09] MEDS ORDERED: HEPARIN LOCK FLUSH 500 UNIT/5 ML SYRINGE IV ONE (11:16)
--- NOTE | 2017-05-09 14:13 | Oncology Progress Note ---
Assessment and Plan (1) Malignant neoplasm of ovary Status: Acute Assessment and plan: 46 yo [place] woman with newly diagnosed Stage IV Ovarian carcinoma discovered by biopsy omental lesion 05/05/17; now s/p C1 Taxol/Carbo on 05/08/17. Tolerated chemo well yesterday. No significant nausea or other adverse effects from chemotherapy. Continue supportive care Current Visit: Yes Qualifiers: Laterality: unspecified laterality Qualified Code(s): C56.9 - Malignant neoplasm of unspecified ovary (2) Carcinomatosis Status: Acute Assessment and plan: as above. May need to attempt paracentesis in near future due to abdominal discomfort. Current Visit: Yes (3) Pleural effusion Status: Acute Assessment and plan: Still subjectively short of breath. Moderate to large effusion on CT. Will try to diurese today. 40 mg IV Lasix once today and reassess Current Visit: Yes Oncology Subjective PN Interval history: Feeling ok today. Still slightly short of breath, particularly when exerting herself to sit forward or get up to the bathroom. Feels abdomen still very distended. Complains that her muscles feel tense and gets some relief with muscle relaxant. Denies chest pain, nausea, vomiting, dysuria. Has walked around in her room but not out into the hallway. Exam - Constitutional Vitals: Period Temp Pulse Resp BP Sys/Arango Pulse Ox Last 24 Hr 96.5 F-97.7 F 84-95 16-22 117-174/63-93 88-98 General appearance: morbidly obese Exam: middle aged, morbidly obese female; appears comfortable - Eye Eye Exam: Present: other (pink palpebral conjunctivae). Absent: scleral icterus - Neck Neck exam: Present: other (obese neck) - Respiratory Respiratory exam: Present: other (very distant breath sounds posteriorly; not aerating left base. CTA anteriorly) - Cardiovascular Cardiovascular exam: Present: RRR. Absent: JVD - GI/Abdominal GI/Abdominal exam: Present: ascites, distended, soft - Extremities Exam Extremities exam: Present: edema - Neurological Exam Neurological exam: Present: alert - Psychiatric Psychiatric exam: Present: normal affect, normal mood - Skin Skin exam: Present: warm, dry Results - Labs CBC & BMP: 05/09/17 04:00 05/09/17 04:00
[2017-05-09] MEDS: INSULIN REGULAR 100 UNIT/ML SUBCUT SCH ×2 (15:49→19:16)
[2017-05-10] MEDS: cefTRIAXone 1,000 MG in SODIUM CHLORIDE 0.9% 100 ML IV SCH (01:04)
[2017-05-10] MEDS: TEMAZEPAM 7.5 MG CAPSULE PO PRN (01:04)
[2017-05-10] MEDS ORDERED: HEPARIN LOCK FLUSH 500 UNIT/5 ML SYRINGE IV ONE (04:00)
[2017-05-10 05:52] LABS: Basophils % 0.5 % (0.0-0.8); Eosinophils # 0.1 10*3/uL (0.0-0.87); Eosinophils % 1.6 % (0.00-10.9); Hematocrit 37.9 VOL% (35.7-47.0); Immature Granulocytes Absolute 0.07 #; Lymphocytes # 1.1 10*3/uL (1.4-4.0); Lymphocytes % 15.2 % (21.3-54.2); Mean Corpuscular HGB Conc 31.7 GM/DL (32-36); Mean Corpuscular Hemoglobin 29 PG (27-34); Mean Corpuscular Volume 91.5 FL (87-102); Mean Platelet Volume 10.7 FL (9.6-12.0); Monocytes # 0.4 10*3/uL (0.11-0.8); Monocytes % 4.9 % (1.7-12.7); Neutrophils # 5.6 10*3/uL (1.4-7.4); Neutrophils % 76.8 % (38.7-73.9); Platelet Count 423 T/CUMM (130-400); Red Blood Count 4.14 MC/CUMM (3.8-5.5); Red Cell Distribution Width 14.6 % (9.3-17.3); White Blood Count 7.3 T/CUMM (4-12)
[2017-05-10] MEDS: ALBUTEROL 2.5 MG/3 ML NEB RESP TX SCH ×4 (06:03→19:43)
[2017-05-10 06:26] LABS: Albumin 2.4 G/DL (3.4-5.0); Bilirubin,Total 0.7 MG/DL (0.2-1.0); Calcium 8.7 MG/DL (8.5-10.1); Osmolality,Calculated 272.7 MOS/KG (273-304); Potassium 3.9 MMOL/L (3.5-5.1); Total Protein 6.5 G/DL (6.4-8.3)
[2017-05-10] MEDS: LISINOPRIL 10 MG TABLET PO SCH (08:52)
[2017-05-10] MEDS: MULTIVITAMIN (CENTRUM) TABLET PO SCH (08:52)
[2017-05-10] MEDS: AZITHROMYCIN 250 MG TABLET PO SCH (08:52)
[2017-05-10] MEDS: METHOCARBAMOL 750 MG TABLET PO SCH ×3 (08:52→20:02)
[2017-05-10] MEDS: DOCUSATE/SENNA 50-8.6 MG TABLET PO SCH (08:52)
[2017-05-10] MEDS: PANTOPRAZOLE 40 MG TABLET PO SCH (08:53)
--- NOTE | 2017-05-10 10:40 | Oncology Progress Note ---
Assessment and Plan (1) Malignant neoplasm of ovary Status: Acute Assessment and plan: 46 yo [place] woman with newly diagnosed Stage IV Ovarian carcinoma discovered by biopsy omental lesion 05/05/17; now s/p C1 Taxol/Carbo on 05/08/17. Tolerated chemo well. No significant nausea or other adverse effects from chemotherapy. Continue supportive care. Tentative plans for discharge tomorrow Current Visit: Yes Qualifiers: Laterality: unspecified laterality Qualified Code(s): C56.9 - Malignant neoplasm of unspecified ovary (2) Carcinomatosis Status: Acute Assessment and plan: as above. May need to attempt paracentesis in near future due to abdominal discomfort. Current Visit: Yes (3) Pleural effusion Status: Acute Assessment and plan: Not much improved from respiratory standpoint compared to yesterday after Lasix 40 mg IV once. Would be a technically difficult thoracentesis due to body habitus. On supplemental O2 and will continue. Current Visit: Yes Oncology Subjective PN Interval history: Did ok yesterday afternoon. Did not have any nausea. Walked from her bedroom to the elevator, though did it without oxygen and was terribly winded when she got back into bed. Slept well last night. Had BM this am. Now experiencing more abdominal pain again across her upper abdomen. Denies fever, chills. Exam - Constitutional Vitals: Period Temp Pulse Resp BP Sys/Arango Pulse Ox Last 24 Hr 96.9 F-97.7 F 84-98 16-20 113-142/63-79 93-98 Exam: Middle aged, morbidly obese female; lying back in bed asleep; wakes easily. Appears comfortable - Respiratory Respiratory exam: Present: other (clear anteriorly) - Cardiovascular Cardiovascular exam: Present: RRR - GI/Abdominal GI/Abdominal exam: Present: ascites, distended, firm - Extremities Exam Extremities exam: Absent: edema Results - Labs CBC & BMP: 05/10/17 05:02 05/10/17 05:02
--- NOTE | 2017-05-10 10:48 | Pulmonology Progress Note ---
Pulmonary - PN: Subj Interval history: 46-year-old lady with stage IV ovarian cancer. Left pleural effusion. Morbid obesity. No new complaints. Exam (Progress Note) - Constitutional Vitals: Period Temp Pulse Resp BP Sys/Arango Pulse Ox Last 24 Hr 96.9 F-97.7 F 84-98 16-20 113-142/63-79 93-98 Exam: Patient is alert oriented. Vital signs normal. Pupils react to light. Throat is clear. Neck supple no bruits. Chest reveals some slight dullness of the left base. Heart normal rate and rhythm no murmurs. Abdomen obese unable to palpate abdominal organs. Extremities no clubbing cyanosis. Chronic edema is mild. Calves nontender. Results - Labs CBC & BMP: 05/10/17 05:02 05/10/17 05:02 Lab Results: I have reviewed the past 24 hour labs Assessment and Plan (1) Malignant neoplasm of ovary Status: Acute Assessment and plan: Defer to oncology. Current Visit: Yes Qualifiers: Laterality: unspecified laterality Qualified Code(s): C56.9 - Malignant neoplasm of unspecified ovary (2) Abdominal carcinomatosis Status: Acute Assessment and plan: Fair pain control. Current Visit: Yes (3) Morbid obesity Status: Chronic Assessment and plan: Probably has obesity hypoventilation syndrome. Patient is not using CPAP. Would consider that Current Visit: Yes (4) Pleural effusion Status: Acute Assessment and plan: Seems to be stable. Current Visit: Yes
[2017-05-10] MEDS: INSULIN REGULAR 100 UNIT/ML SUBCUT SCH ×2 (11:00→17:56)
--- NOTE | 2017-05-10 13:45 | Hospitalist Progress Note ---
Assessment and Plan (1) Abdominal carcinomatosis Status: Acute Assessment and plan: Status post chemotherapy and has some nausea likely due to that oncology following continue antiemetic as needed basis. Abdominal pain is likely due to metastatic disease patient has prescription for as needed analgesic. Current Visit: Yes (2) Alkalosis Status: Acute Assessment and plan: High CO2 noted on her chemistry likely due to sleep apnea as suspected on body contour she has a morbid obesity. Consult for sleep studies Current Visit: Yes (3) Malignant neoplasm of ovary Status: Acute Assessment and plan: Followed by oncology and on chemo Current Visit: Yes Qualifiers: Laterality: unspecified laterality Qualified Code(s): C56.9 - Malignant neoplasm of unspecified ovary Hospitalist: Subjective Interval history: Ms. Cheung facet admitted on 05/01/2017 after transfer from [facility]. With history of abdominal pain with distention distention and shortness of breath. Her imaging revealed fatty liver and large bilateral mixed cystic and solid masses, appearing to arise from the adnexa. There was some also omental stranding suspected of metastatic disease. Biopsy of the omental lesion suggested ovarian cancer and now based on her staging she is has stage IV ovarian carcinoma and being treated with a chemotherapy. She received chemotherapy and Thursday. She complained of nausea but no vomiting diarrhea. She still have shortness of breath and some abdominal pain no fever reported. Exam - Constitutional Vitals: Period Temp Pulse Resp BP Sys/Arango Pulse Ox Last 24 Hr 96.9 F-97.8 F 87-110 16-22 113-142/67-79 94-98 General appearance: morbidly obese - Respiratory Respiratory exam: Present: rhonchi (Bilateral equal radial continue with the rhonchi diffusely.) - Cardiovascular Cardiovascular exam: Present: regular rate and rhythm, tachycardia (Mild tachycardia) - GI/Abdominal GI/Abdominal exam: Present: normal bowel sounds, tenderness (Diffuse discomfort in the belly especially right upper quadrant and bowel sounds present no rigidity or rebound), soft Results - Labs CBC & BMP: 05/10/17 05:02 05/10/17 05:02 Lab Results: I have reviewed the past 24 hour labs
[2017-05-11] MEDS: ALBUTEROL 2.5 MG/3 ML NEB RESP TX SCH ×4 (01:04→19:56)
[2017-05-11] MEDS: TEMAZEPAM 7.5 MG CAPSULE PO PRN (01:39)
[2017-05-11] MEDS: cefTRIAXone 1,000 MG in SODIUM CHLORIDE 0.9% 100 ML IV SCH (01:39)
[2017-05-11 05:24] LABS: Basophils % 0.6 % (0.0-0.8); Eosinophils # 0.2 10*3/uL (0.0-0.87); Hematocrit 38.1 VOL% (35.7-47.0); Hemoglobin 12.1 GM/DL (12.0-16.0); Immature Granulocytes % 0.7 %; Immature Granulocytes Absolute 0.05 #; Lymphocytes % 14.4 % (21.3-54.2); Mean Corpuscular HGB Conc 31.8 GM/DL (32-36); Mean Corpuscular Hemoglobin 29 PG (27-34); Mean Corpuscular Volume 92.5 FL (87-102); Mean Platelet Volume 10.9 FL (9.6-12.0); Monocytes # 0.2 10*3/uL (0.11-0.8); Neutrophils # 5.7 10*3/uL (1.4-7.4); Neutrophils % 78.3 % (38.7-73.9); Platelet Count 362 T/CUMM (130-400); Red Blood Count 4.12 MC/CUMM (3.8-5.5); Red Cell Distribution Width 14.6 % (9.3-17.3); White Blood Count 7.2 T/CUMM (4-12)
[2017-05-11 06:07] LABS: Alanine Aminotransferase 25 U/L (13-56); Albumin 2.5 G/DL (3.4-5.0); Alkaline Phosphatase 94 U/L (45-117); Aspartate Amino Transferase 30 U/L (0-37); Bilirubin,Total < 0.39 MG/DL (0.2-1.0); Blood Urea Nitrogen 10 MG/DL (7-18); Calcium 8.1 MG/DL (8.5-10.1); Glucose 106 MG/DL (74-106); Potassium 4.1 MMOL/L (3.5-5.1); Sodium 136 MMOL/L (136-145); Total Protein 6.5 G/DL (6.4-8.3)
[2017-05-11 06:13] LABS: Eosinophils 2 % (0-10); Hypochromasia 1+; Lymphocytes 13 % (20-55); Nucleated Red Blood Cells 1 (0-5); Ovalocytes Slight; Platelet Estimate Adequate; Segmented Neutrophils 82 % (50-85); Total Cells Counted 100
[2017-05-11] MEDS: INSULIN REGULAR 100 UNIT/ML SUBCUT SCH ×2 (07:23→17:54)
--- NOTE | 2017-05-11 08:08 | Oncology Progress Note ---
Oncology Subjective PN Interval history: Ms. Jarrett received her first dose of chemotherapy on June 08 for her stage IV ovarian cancer. BRCA testing has not returned yet. It consisted of carboplatin 750 mg and Taxol 300 mg intravenously. These doses were adjusted downward because of the patient's morbid obesity and also probably because she has a significant amount of fluid retention within the tissues. She felt very bad for the first 2 days after chemotherapy and is feeling better now. She never vomited but she was nauseated. She has no tingling or numbness in her extremities. She has no mouth or pharyngeal rawness. Her dyspnea is no worse and the main reason that she is dyspneic if she has restrictive and obstructive lung disease. She reports no rash although she has had some pruritus. At this point we need to work on swing bed. Her next course of this chemotherapy will be due in another 2 weeks and a few days. Lab work today includes white cell count of 7200 with a hemoglobin of 12.1 and a platelet count of 362,000. Her comprehensive metabolic profile includes an LDH of 360 with a low serum albumin of 2.5 and a slightly low calcium of 8.1 that is almost certain to correct to normal. We may need to consider swing bed at this point. She is morbidly obese but she actually has gotten up and is ambulatory. The problem is that she walked without her oxygen. We need to get physical therapy involved. We need to work on swing bed. On physical examination she is oriented and alert and as stated she is morbidly obese. Lids and conjunctivae are normal. Heart sounds are normal with a regular rhythm. She has 3+ pedal edema. Lungs: I cannot hear breath sounds well because of her obesity but she has a faint wheeze on expiration and apparently prolonged expiratory phase of respiration. Cranial nerves II through XII are intact. She has no focal neurologic deficits. Psychiatric. She is completely oriented and alert. We are monitoring for toxicity. Exam - Constitutional Vitals: Period Temp Pulse Resp BP Sys/Arango Pulse Ox Last 24 Hr 96.5 F-97.8 F 93-112 16-24 104-145/55-83 94-100 Results - Labs CBC & BMP: 05/11/17 04:33 05/11/17 04:33
--- NOTE | 2017-05-11 08:21 | Pulmonology Progress Note ---
Pulmonary - PN: Subj Interval history: Patient is a 46-year-old that comes in with some fever and abdominal discomfort and mild shortness of breath. She has ascites and ovarian mass and is felt to have carcinomatosis. She does have a left lower lobe consolidation and effusion. She is getting antibiotics for pneumonia. Her pathology did come back consistent with ovarian cancer. She did get her chemotherapy [place] she says she had a fairly rough weekend. She had a lot of abdominal cramps and nausea. She is feeling a little better today. She is eating a little breakfast. Her shortness of breath is unchanged. She is not having any chest pain or increased cough now. Exam (Progress Note) - Constitutional Vitals: Period Temp Pulse Resp BP Sys/Arango Pulse Ox Last 24 Hr 96.5 F-97.8 F 93-112 16-24 104-145/55-83 94-100 Exam: General appearance: mild distress (The patient is sitting up and eating breakfast and looks reasonably comfortable. ) - Head Head exam: Present: normal inspection, normocephalic - Eye Eye exam: Present: EOMI. Absent: scleral icterus Pupils: Present: CONCEPCION - ENT ENT exam: Present: normal exam - Neck Neck exam: Present: normal inspection. Absent: lymphadenopathy - Respiratory Respiratory exam: Present: She still has decreased breath sounds in the bases but is hard to examine lying in bed. She does not have any wheezing. - Cardiovascular Cardiovascular exam: Present: regular rate and rhythm. Absent: gallop, systolic murmur - GI/Abdominal GI/Abdominal exam: Present: She still has a very swollen firm abdomen. She does have a very large abdomen. She does have some mild tenderness in her abdomen. - Extremities Exam Extremities exam: Present: edema (She does have mild edema of her legs.). Absent: calf tenderness - Neurological Exam Neurological exam: Present: alert, oriented X3, CN II-XII intact, she has no focal deficits. - Psychiatric Psychiatric exam: Present: normal affect, normal mood - Skin Skin exam: Present: warm, dry Results - Labs CBC & BMP: 05/11/17 04:33 05/11/17 04:33 Assessment and Plan (1) Pneumonia Status: Acute Assessment and plan: The patient is having less symptoms with decreased coughing. She does not seem to be having any more trouble breathing. We will see how she does with chemotherapy. Current Visit: Yes Qualifiers: Pneumonia type: due to Mycoplasma pneumoniae Laterality: left (2) Malignant neoplasm of ovary Status: Acute Assessment and plan: She apparently has large ovarian masses and carcinomatosis. Her biopsy is consistent with ovarian cancer. She started chemotherapy Thursday. Current Visit: Yes Qualifiers: Laterality: unspecified laterality Qualified Code(s): C56.9 - Malignant neoplasm of unspecified ovary (3) Abdominal carcinomatosis Status: Acute Assessment and plan: She does have swelling and ascites and a very large abdomen. She complains of tightness of her abdomen and some discomfort. He has been having some abdominal cramps but is better now. Current Visit: Yes (4) Morbid obesity Status: Chronic Assessment and plan: The patient is considerably overweight at this point. She did diurese a little. She looks comfortable at present. Current Visit: Yes
--- NOTE | 2017-05-11 10:04 | Pulmonology Progress Note ---
Pulmonary - PN: Subj Interval history: Ms. Jarrett was transferred from [facility] for abdominal pain with distention and shortness of breath. During this hospitalization she has been diagnosed with metastatic ovarian cancer with abdominal ascites. Patient has received her first dose of chemotherapy per oncology. Oncology suggested the patient will swing the. Patient was also diagnosed with community-acquired pneumonia and pulmonology is following. Patient is without complaints at this time. She reports her pain was well controlled. Patient reports that this week he she did have some difficulties. Exam (Progress Note) - Constitutional Vitals: Period Temp Pulse Resp BP Sys/Arango Pulse Ox Last 24 Hr 96.5 F-97.8 F 100-112 16-24 104-145/55-83 94-100 General appearance: no acute distress, morbidly obese - Head Head exam: Present: normal inspection - Eye Eye exam: Present: EOMI - Neck Neck exam: Present: normal inspection - Respiratory Respiratory exam: Present: decreased breath sounds, other (very difficult to her breath sounds due to body habitus) - Cardiovascular Cardiovascular exam: Present: regular rate and rhythm. Absent: systolic murmur - GI/Abdominal GI/Abdominal exam: Present: normal bowel sounds, ascites, distended, tenderness - Extremities Exam Extremities exam: Present: edema (mild) - Neurological Exam Neurological exam: Present: alert, normal gait - Skin Skin exam: Present: normal color Results - Labs CBC & BMP: 05/11/17 04:33 05/11/17 04:33 Assessment and Plan (1) Abdominal carcinomatosis Status: Acute Assessment and plan: Oncology is following; status post chemotherapy; pain control Current Visit: Yes (2) Malignant neoplasm of ovary Status: Acute Assessment and plan: Oncology is following; status post chemotherapy; pain control Current Visit: Yes Qualifiers: Laterality: unspecified laterality Qualified Code(s): C56.9 - Malignant neoplasm of unspecified ovary (3) Pneumonia Status: Acute Assessment and plan: Continue Zithromax and Rocephin; some concern that patient may have sleep apnea ; pulmonology following Current Visit: Yes Qualifiers: Pneumonia type: due to Mycoplasma pneumoniae Laterality: left
[2017-05-11] MEDS: DOCUSATE/SENNA 50-8.6 MG TABLET PO SCH (10:23)
[2017-05-11] MEDS: METHOCARBAMOL 750 MG TABLET PO SCH ×3 (10:23→20:33)
[2017-05-11] MEDS: AZITHROMYCIN 250 MG TABLET PO SCH (10:23)
[2017-05-11] MEDS: LISINOPRIL 10 MG TABLET PO SCH (10:23)
[2017-05-11] MEDS: MULTIVITAMIN (CENTRUM) TABLET PO SCH (10:23)
[2017-05-11] MEDS: PANTOPRAZOLE 40 MG TABLET PO SCH (10:23)
--- NOTE | 2017-05-11 13:52 | Sleep Medicine Consult ---
Assessment and Plan (1) Unspecified sleep apnea Status: Acute Assessment and plan: Her history certainly is consistent with sleep apnea. We will initiate evaluation with HST study tonight and if positive for sleep apnea, initiate therapy and follow-up response. Follow-up can be in the [facility] sleep clinic. Current Visit: Yes (2) Morbid obesity Status: Chronic Assessment and plan: Patient encouraged to continue to work on weight loss thru appropriate dieting and exercise. The combination of weight loss and CPAP therapy for obstructive sleep apnea is better than either therapy alone for obstructive sleep apnea. Current Visit: Yes History of Present Illness Chief complaint: Sleep apnea History of present illness: Ms. Jarrett is a 46 year old female admitted for evaluation of abdominal pain. She was diagnosed with ovarian carcinomatosis after pelvic and abdominal MRI was done. She has been having pain in her abdomen for 2-3 weeks. During her hospital stay, was noted that she was having drops in her oxygen level during sleep. She does have a history of snoring and abnormal breathing during sleep. The patient has a history of awakening from sleep short of breath and has been told by family members that she is a very loud snore. Family members have told her that she stops breathing during her sleep. Home Medications Medication Instructions Recorded Confirmed Type Acetaminophen Tab [Tylenol Tab] 500 mg PO Q6H PRN 05/01/17 05/01/17 History Ergocalciferol (Vitamin D2) 50,000 unit PO Q7DAY 05/01/17 05/01/17 History [Vitamin D2] HYDROcodone/ACETAMIN 7.5-325 1 tablet PO Q6H PRN 05/01/17 05/01/17 History [[place] 7.5-325] Lisinopril 10 mg PO DAILY 05/01/17 05/01/17 History Methocarbamol Tab [Robaxin Tab] 750 mg PO TID 05/01/17 05/01/17 History Multivitamin [One Daily 1 each PO DAILY 05/01/17 05/01/17 History Multivitamin] Ondansetron [Ondansetron Odt] 2 mg PO Q8H PRN 05/01/17 05/01/17 History Sennosides/Docusate Sodium 1 each PO DAILY 05/01/17 05/01/17 History [Senna-S Tablet] Tramadol HCl [Tramadol Tab] 50 mg PO Q6H PRN 05/01/17 05/01/17 History Allergies Allergy/AdvReac Type Severity Reaction Status Date / Time No Known Allergies Allergy Unverified 05/01/17 02:33 Review of systems: Notable for lower extremity edema. Exam (Pulmonay) H&P - Constitutional Vitals: Period Temp Pulse Resp BP Sys/Arango Pulse Ox Last 24 Hr 96.5 F-97.7 F 100-112 16-24 104-145/55-89 94-100 Exam: She is alert and responsive. She answers questions appropriately. She is very pleasant. Pupils equal round reactive to light and accommodation. Extraocular movements intact. Oropharynx with a class IV Mallampati exam. Neck is supple without adenopathy but large. Her neck circumference is 21.5 inches. No supraclavicular adenopathy is noted. Chest with symmetrical breath sounds without focal wheeze, rhonchi, or rales. Cardiac exam reveals a regular rhythm without murmur or gallop. Abdomen obese nontender without palpable hepatosplenomegaly or mass. Extremities are without significant clubbing or cyanosis. Neurologically, she is grossly intact. She moves all extremities with good strength. Medical,Surgical,& Family Hx - Medical History Cardio: History of: Hypertension Reproductive: History of: Reproductive Cancer - Surgical History Abdominal Surgeries: Surgical HX of: Cholecystectomy - Family History Family History: Reports;: Family Cancer (mother), Family Diabetes (mother), Family Hypertension (mother) - Social History Smoking Status: Former smoker Frequency of Alcohol Use: Occasionally Type of Drug Use: None Results - Labs CBC & BMP: 05/11/17 04:33 05/11/17 04:33 Lab Results: I have reviewed the past 24 hour labs Labs: TSH has not been done.
--- NOTE | 2017-05-11 15:26 | XRay Report ---
XR chest 2V Indication: For swing bed placement Comparison: Chest x-ray dated May 03, 2017 Technique: Frontal and lateral views of the chest. Findings: Continued cardiomegaly. Interval increased moderate to large left pleural fluid. Suspect atelectasis/consolidation of the left mid and lower lung. Visualized osseous and surrounding soft tissue structures appear grossly unchanged. Left-sided PICC line tip at the atriocaval junction. IMPRESSION: As above. PROCEDURE INTERPRETED AT [facility] DEPARTMENT OF RADIOLOGY Final Report Signed by: Dr Pedro Diaz
[2017-05-12] MEDS: ALBUTEROL 2.5 MG/3 ML NEB RESP TX SCH ×4 (01:08→18:40)
[2017-05-12] MEDS: TEMAZEPAM 7.5 MG CAPSULE PO PRN (01:29)
[2017-05-12] MEDS: cefTRIAXone 1,000 MG in SODIUM CHLORIDE 0.9% 100 ML IV SCH (01:30)
[2017-05-12 06:27] LABS: Basophils % 0.5 % (0.0-0.8); Eosinophils # 0.3 10*3/uL (0.0-0.87); Eosinophils % 4.1 % (0.00-10.9); Hematocrit 36.6 VOL% (35.7-47.0); Hemoglobin 11.7 GM/DL (12.0-16.0); Immature Granulocytes % 0.5 %; Immature Granulocytes Absolute 0.04 #; Lymphocytes # 1.2 10*3/uL (1.4-4.0); Lymphocytes % 16.1 % (21.3-54.2); Mean Corpuscular Hemoglobin 30 PG (27-34); Mean Corpuscular Volume 92.2 FL (87-102); Monocytes # 0.1 10*3/uL (0.11-0.8); Monocytes % 1.6 % (1.7-12.7); Neutrophils # 5.6 10*3/uL (1.4-7.4); Neutrophils % 77.2 % (38.7-73.9); Platelet Count 401 T/CUMM (130-400); Red Blood Count 3.97 MC/CUMM (3.8-5.5); Red Cell Distribution Width 14.6 % (9.3-17.3); White Blood Count 7.3 T/CUMM (4-12)
[2017-05-12 06:52] LABS: Basophilic Stippling Slight; Eosinophils 7 % (0-10); Hypochromasia Slight; Lymphocytes 8 % (20-55); Platelet Estimate Adequate; Segmented Neutrophils 83 % (50-85); Target Cells Slight; Total Cells Counted 100
[2017-05-12 07:05] LABS: Albumin 2.4 G/DL (3.4-5.0); Calcium 8.2 MG/DL (8.5-10.1); Osmolality,Calculated 266.2 MOS/KG (273-304); Potassium 4.5 MMOL/L (3.5-5.1); Total Protein 6.4 G/DL (6.4-8.3)
--- NOTE | 2017-05-12 07:16 | Oncology Progress Note ---
Oncology Subjective PN Interval history: I reviewed Ms. Jarrett's chest x-ray demonstrates an increasing left pleural effusion. Dr. Dominique plans to perform thoracentesis and I agree with this. We need cytologies when it is done. Ms. Jarrett has what appears to be stage IV ovarian cancer because of a pleural effusion and because of carcinomatosis within her abdomen that has been biopsy- proven to be ovarian cancer. She has bulky intra-abdominal disease. She has restrictive lung disease due to her obesity, the intra-abdominal carcinomatosis and the pleural effusion. She is having dyspnea with exertion. She received her First course of chemotherapy on May 08, 2017 and it consisted of Taxol 300 mg IV and carboplatin 750 mg IV. I have ordered a BRCA 1 and 2 screen on this patient and it has not been done. It has not even been actually ordered as far as I can tell. I will reorder it at a later date. Her lab work today includes: White cell count 7300 Hemoglobin 11.7. Platelet count 401,000. We are working on swing bed because the patient weighs 345 pounds and is 5 feet 0 inches tall, has a pleural effusion and is having difficulty ambulating. She also has restrictive lung disease due to her obesity as well as due to the pleural effusion. I look forward to results of the thoracentesis. On physical examination she is acutely ill and tachypneic. Eyes: Normal lids and conjunctivae. ENT: Her voice is clear. Her hearing is normal. Her trachea is midline and she has no neck masses. Lungs: Decreased breath sounds in the left lung with normal breath sounds on the right. Cardiovascular: Her heart rhythm is regular without murmur, gallop or rub. There is no jugular venous distention, clubbing or cyanosis but she does have 2 + pedal edema. Abdomen: Distended and protuberant. Known carcinomatosis. Neurologic: Cranial nerves II through XII are intact. There are no focal neurologic deficits. We are continuing physical therapy and working on swing bed placement. We are monitoring lab work closely. Exam - Constitutional Vitals: Period Temp Pulse Resp BP Sys/Arango Pulse Ox Last 24 Hr 96.9 F-97.8 F 81-107 16-22 121-145/55-89 90-100 Results - Labs CBC & BMP: 05/12/17 04:20 05/12/17 04:20
[2017-05-12] MEDS: INSULIN REGULAR 100 UNIT/ML SUBCUT SCH ×2 (08:03→16:59)
--- NOTE | 2017-05-12 08:40 | Pulmonology Progress Note ---
Pulmonary - PN: Subj Interval history: Patient is a 46-year-old that comes in with some fever and abdominal discomfort and mild shortness of breath. She has ascites and ovarian mass and is felt to have carcinomatosis. She does have a left lower lobe consolidation and effusion. She is getting antibiotics for pneumonia. Her pathology did come back consistent with ovarian cancer. She did get her chemotherapy Thursday she says she had a fairly rough weekend. She had a lot of abdominal cramps and nausea. She is eating a little better and had a fairly good night. She still has considerable abdominal bloating and some shortness of breath. Her chest x-ray does show an increased left pleural effusion. She needs a thoracentesis but this probably needs to be done under ultrasound. She is quite large. Exam (Progress Note) - Constitutional Vitals: Period Temp Pulse Resp BP Sys/Arango Pulse Ox Last 24 Hr 96.9 F-97.8 F 81-107 16-22 114-137/55-89 90-100 Exam: General appearance: mild distress (The patient is sitting up and eating breakfast and looks reasonably comfortable. ) - Head Head exam: Present: normal inspection, normocephalic - Eye Eye exam: Present: EOMI. Absent: scleral icterus Pupils: Present: CONCEPCION - ENT ENT exam: Present: normal exam - Neck Neck exam: Present: normal inspection. Absent: lymphadenopathy - Respiratory Respiratory exam: Present: She still has decreased breath sounds in the bases but is hard to examine lying in bed. She does not have any wheezing. She is moving air okay. - Cardiovascular Cardiovascular exam: Present: regular rate and rhythm. Absent: gallop, systolic murmur - GI/Abdominal GI/Abdominal exam: Present: She still has a very swollen firm abdomen. She does have a very large abdomen. She does have some mild tenderness in her abdomen. - Extremities Exam Extremities exam: Present: edema (She does have mild edema of her legs.). Absent: calf tenderness - Neurological Exam Neurological exam: Present: alert, oriented X3, CN II-XII intact, she has no focal deficits. - Psychiatric Psychiatric exam: Present: normal affect, normal mood - Skin Skin exam: Present: warm, dry Results - Labs CBC & BMP: 05/12/17 04:20 05/12/17 04:20 - Diagnostic Findings Procedure: Chest x-ray: image reviewed by me, report reviewed by me (Chest x- ray does show a left pleural effusion.) Assessment and Plan (1) Pneumonia Status: Acute Assessment and plan: The patient is having less symptoms with decreased coughing. She still gets short of breath easily. She is not having any toxic features. She mainly has a left pleural effusion. She probably needs a thoracentesis under ultrasound. Current Visit: Yes Qualifiers: Pneumonia type: due to Mycoplasma pneumoniae Laterality: left (2) Malignant neoplasm of ovary Status: Acute Assessment and plan: She apparently has large ovarian masses and carcinomatosis. Her biopsy is consistent with ovarian cancer. She started chemotherapy Thursday. Her nausea and appetite are better. Current Visit: Yes Qualifiers: Laterality: unspecified laterality Qualified Code(s): C56.9 - Malignant neoplasm of unspecified ovary (3) Abdominal carcinomatosis Status: Acute Assessment and plan: She does have swelling and ascites and a very large abdomen. She complains of tightness of her abdomen and some discomfort. He has been having some abdominal cramps but is better now. Current Visit: Yes (4) Morbid obesity Status: Chronic Assessment and plan: The patient is considerably overweight at this point. She did diurese a little. She looks comfortable at present. She is getting a sleep study. Current Visit: Yes
[2017-05-12] MEDS: PANTOPRAZOLE 40 MG TABLET PO SCH (09:40)
[2017-05-12] MEDS: METHOCARBAMOL 750 MG TABLET PO SCH ×3 (09:40→21:21)
[2017-05-12] MEDS: LISINOPRIL 10 MG TABLET PO SCH (09:40)
[2017-05-12] MEDS: AZITHROMYCIN 250 MG TABLET PO SCH (09:40)
[2017-05-12] MEDS: DOCUSATE/SENNA 50-8.6 MG TABLET PO SCH (09:40)
[2017-05-12] MEDS: MULTIVITAMIN (CENTRUM) TABLET PO SCH (09:41)
--- NOTE | 2017-05-12 11:05 | Hospitalist Progress Note ---
<Josesito Chacon - Last Filed: 05/12/17 11:46> Assessment and Plan (1) Abdominal carcinomatosis Status: Acute Assessment and plan: Oncology following patient. She received first chemo treatment on Thursday. Current Visit: Yes (2) Pleural effusion Status: Acute Assessment and plan: Pulmonology following. Possible plan for thoracentesis. Current Visit: Yes (3) Pneumonia Status: Acute Assessment and plan: Continue treatment with current therapy. (Azithromycin and Rocephin antibiotics) . Pulmonology following. Current Visit: Yes Qualifiers: Pneumonia type: due to Mycoplasma pneumoniae Laterality: left (4) Morbid obesity Status: Chronic Assessment and plan: Encourage patient to pursue healthier lifestyle. Current Visit: Yes Hospitalist: Subjective Interval history: Ms. Jarrett was seen and examined this am. Mother present at bedside. Pt. states she is feeling better today but did report episode of shortness of breath overnight. Denies any abdominal tenderness during exam. Supplemental O2 on patient. Pt. was noted to have moderate to large left pleural effusion on CXR. Pulmonology has seen patient and a possible thoracentesis will be performed. This will occur most likely under ultrasound due to patient's weight. Labs stable today. Pt. did not voice any concerns/needs at this time. We will continue to follow. Exam - Constitutional Vitals: Period Temp Pulse Resp BP Sys/Arango Pulse Ox Last 24 Hr 96.9 F-97.8 F 81-107 16-22 114-137/55-89 90-100 General appearance: no acute distress, morbidly obese - Head Head exam: Present: normal inspection, normocephalic - Eye Eye exam: Present: EOMI. Absent: scleral icterus Pupils: Present: CONCEPCION - Respiratory Respiratory exam: Present: other (pt. has decreased breath sounds (left greater than right)). Absent: wheezes - Cardiovascular Cardiovascular exam: Present: regular rate and rhythm - GI/Abdominal GI/Abdominal exam: Present: normal bowel sounds, soft. Absent: tenderness - Extremities Exam Extremities exam: Present: normal capillary refill, edema. Absent: calf tenderness - Neurological Exam Neurological exam: Present: alert, oriented X3 - Psychiatric Psychiatric exam: Present: normal affect, normal mood - Skin Skin exam: Present: normal color, warm, dry Results - Labs CBC & BMP: 05/12/17 04:20 05/12/17 04:20 Lab Results: I have reviewed the past 24 hour labs <Crystal Sebastian - Last Filed: 05/12/17 14:51> Hospitalist: Subjective Interval history: Pt reports feeling more SOB. CXR reveals worsening in left pleural effusion. She also reports chronic mild to moderate abdominal pain which is relatively controlled with [place]. Last BM was 3 days ago. No melena or BRBPR reported. No chest pain. Feels more weak. Tolerating small amount of po. No fever. No cough. Exam - Constitutional Vitals: Period Temp Pulse Resp BP Sys/Arango Pulse Ox Last 24 Hr 96.9 F-97.8 F 81-107 16-22 114-132/55-73 90-100 General appearance: mild distress, no no acute distress - Respiratory Respiratory exam: Present: other (pt. has decreased breath sounds (left greater than right) clear anteriorly with mild abdominal retractions. She is speaking in phrases) - Cardiovascular Cardiovascular exam: Absent: diastolic murmur, systolic murmur - GI/Abdominal GI/Abdominal exam: Absent: normal bowel sounds (hypoactive bowel sounds) - Extremities Exam Extremities exam: Absent: edema Results - Labs CBC & BMP: 05/12/17 04:20 05/12/17 04:20 - Impressions (1) Abdominal carcinomatosis Status: Acute Assessment and plan: Status post chemotherapy. Oncology following. Antiemetics as needed. Abdominal pain is likely due to metastatic disease patient has prescription for as needed analgesic. Current Visit: Yes (2) Worsening left pleural effusion -Pulmonology has plans for a therapeutic thoracentesis by IR (3) Progressive hyponatremia -may be related to SIADH due to her recurrent pleural effusion. Patient appears to be euvolemic -Check urine sodium, creatinine, osmolality. Check TSH. Recheck sodium level in the a.m. (4) Obstructive sleep apnea Status: Chronic Assessment and plan: CPAP with titration per sleep medicine. (5) Malignant neoplasm of ovary Status: Acute Assessment and plan: Followed by oncology and on chemo Current Visit: Yes Qualifiers: Laterality: unspecified laterality Qualified Code(s): C56.9 - Malignant neoplasm of unspecified ovary -Management per primary service (6) Morbid obesity BMI of 67.5 Discussed with nurse, patient, family. All questions answered.
[2017-05-12] MEDS: ONDANSETRON 4 MG/2 ML VIAL IV PRN (11:44)
--- NOTE | 2017-05-12 13:01 | Sleep Medicine Progress Note ---
Assessment and Plan (1) Unspecified sleep apnea Status: Acute Assessment and plan: This patient does have obstructive sleep apnea by HST evaluation. We will initiate CPAP therapy on her auto titration mode. She did have significant tachycardia on her HST which is concerning. She is certainly high risk for pulmonary embolism and I would have low threshold for evaluating her for thromboembolic disease given her obesity, ovarian cancer, and her unexplained tachycardia. Current Visit: Yes (2) Morbid obesity Status: Chronic Current Visit: Yes Sleep Medicine Subjective Interval history: This patient did have evidence of obstructive sleep apnea on HST evaluation last night. She had an AHI of only 6.8 but did have a low O2 sats to 66% and spent 11% of her sleep with O2 sats of less than 90%. She also remained tachycardic the overwhelming majority of the night with her heart rate in the low 100s. She does complain of being more short of breath today and tells me that she is going to have fluid removed from her chest. She denies calf tenderness or coughing up blood. Exam (Progress Note) - Constitutional Vitals: Period Temp Pulse Resp BP Sys/Arango Pulse Ox Last 24 Hr 96.9 F-97.8 F 81-107 16-22 114-132/55-73 90-100 Exam: She does appear slightly more anxious and more short of breath than yesterday. Pupils equal round reactive to light and accommodation. Extraocular movements intact. Oropharynx with a class III Mallampati exam. Chest with decreased breath sounds on the left relative to the right. Cardiac exam reveals a regular rhythm without murmur gallop abdomen obese with mild nonspecific tenderness. Extremities are without calf tenderness or significant edema. Neurologically, she is grossly intact. Results - Labs CBC & BMP: 05/12/17 04:20 05/12/17 04:20 Lab Results: I have reviewed the past 24 hour labs
--- NOTE | 2017-05-12 15:31 | Ultrasound Report ---
Exam: US venous doppler lower extremity bilateral Date:05/12/2017 12:56 PM Comparison: May 01, 2017 Indication: Shortness of breath. History of ovarian cancer. Evaluate for DVT Color Doppler, wave form analysis, and compression analysis of the deep veins of both lower extremities from the common femoral vein level through the popliteal vein level shows that the veins are readily compressible. There is no abnormal intraluminal material to suggest thrombus. Waveform analysis is unremarkable. Ultrasound images were captured and archived Impression: Normal bilateral lower extremity color flow venous Doppler study. No evidence of deep venous thrombosis PROCEDURE INTERPRETED AT [facility] DEPARTMENT OF RADIOLOGY Final Report Signed by: Dr. Brittney Howard
--- NOTE | 2017-05-12 16:53 | Post Interventional Procedure ---
Pre-op diagnosis: large left pleural effusion Post-op diagnosis: same Procedure: left thoracentesis with u/s guidance Contrast: none Flouroscopy: none Radiologist: Tony Parks Anesthesia: local Specimens: none sent Estimated blood loss: none Complications: none Condition: stable Description/Findings: large right pleural effusion 1.4 L removed and patient stable Assessment and Plan - Time spent with patient Time spent with patient: Less than 30 minutes
--- NOTE | 2017-05-12 16:53 | XRay Report ---
Exam: XR chest post procedure Indication: Status post left thoracentesis Comparison study: Prior chest radiograph dated 05/11/2017 Findings: Since the prior study, there has been slight reduction in the volume of pleural fluid and left basilar opacities. There is no pneumothorax. Left-sided PICC line is in stable position. Right lung is predominantly clear with minimal interstitial opacities. Impression: No pneumothorax following left thoracentesis with improved aeration within the lung bases and residual basilar infiltrates/atelectasis and probable trace residual pleural fluid. PROCEDURE INTERPRETED AT [facility] DEPARTMENT OF RADIOLOGY Final Report Signed by: Tony Parks
[2017-05-12] MEDS: ENOXAPARIN 40 MG/0.4 ML SYRINGE SUBCUT SCH (16:58)
--- NOTE | 2017-05-12 16:58 | Ultrasound Report ---
Exam: ULTRASOUND-GUIDED THORACENTESIS Clinical history: History of abdominal malignancy with large right pleural effusion and morbid obesity. Physician: Dr. Parks. Procedure: Informed consent was obtained prior to the procedure. A formal timeout was performed. Maximum sterile barrier technique was used. A partially loculated left-sided pleural effusion was identified with ultrasound. The left posterior chest was prepped and draped in sterile fashion. 1% lidocaine was used to anesthetize the skin and subcutaneous tissues. Under sonographic guidance, a 6 German safety centesis needle and catheter were advanced into the effusion using trocar technique. A captured sonographic image demonstrates positioning of the needle within the targeted pleural fluid. The needle was removed. Through the catheter, we obtained a total of 1400 cc of blood tinged serous fluid. The catheter was removed. A bandage was placed at the puncture site. The patient tolerated the procedure well. Chest radiograph is pending. Impression: 1. Technically successful ultrasound guided left thoracentesis as detailed above. 2. Post procedure chest radiograph is pending. PROCEDURE INTERPRETED AT [facility] DEPARTMENT OF RADIOLOGY Final Report Signed by: Tony Parks
[2017-05-13] MEDS: ALBUTEROL 2.5 MG/3 ML NEB RESP TX SCH ×4 (01:13→18:40)
[2017-05-13] MEDS: cefTRIAXone 1,000 MG in SODIUM CHLORIDE 0.9% 100 ML IV SCH (02:38)
[2017-05-13 05:27] LABS: Basophils % 0.3 % (0.0-0.8); Eosinophils # 0.3 10*3/uL (0.0-0.87); Eosinophils % 4.9 % (0.00-10.9); Hematocrit 34.9 VOL% (35.7-47.0); Hemoglobin 11.1 GM/DL (12.0-16.0); Immature Granulocytes % 0.7 %; Immature Granulocytes Absolute 0.04 #; Lymphocytes # 0.9 10*3/uL (1.4-4.0); Lymphocytes % 14.9 % (21.3-54.2); Mean Corpuscular HGB Conc 31.8 GM/DL (32-36); Mean Corpuscular Hemoglobin 29 PG (27-34); Mean Corpuscular Volume 91.6 FL (87-102); Mean Platelet Volume 10.6 FL (9.6-12.0); Monocytes # 0.3 10*3/uL (0.11-0.8); Monocytes % 4.3 % (1.7-12.7); Neutrophils # 4.3 10*3/uL (1.4-7.4); Neutrophils % 74.9 % (38.7-73.9); Platelet Count 392 T/CUMM (130-400); Red Blood Count 3.81 MC/CUMM (3.8-5.5); Red Cell Distribution Width 14.6 % (9.3-17.3); White Blood Count 5.8 T/CUMM (4-12)
[2017-05-13 06:00] LABS: Albumin 2.4 G/DL (3.4-5.0); Bilirubin,Total 0.5 MG/DL (0.2-1.0); Calcium 8.1 MG/DL (8.5-10.1); Osmolality,Calculated 266.4 MOS/KG (273-304); Potassium 4.5 MMOL/L (3.5-5.1); Total Protein 5.9 G/DL (6.4-8.3)
[2017-05-13 06:04] LABS: Eosinophils 4 % (0-10); Hypochromasia 1+; Lymphocytes 15 % (20-55); Platelet Estimate Adequate; Segmented Neutrophils 80 % (50-85); Total Cells Counted 100
[2017-05-13 06:14] LABS: Free T4 (Free Thyroxine) 1.26 NG/DL (0.76-1.46); Thyroid Stimulating Hormone 3.91 uIU/ml (0.358-3.74)
--- NOTE | 2017-05-13 07:12 | Oncology Progress Note ---
Oncology Subjective PN Interval history: Ms. Jarrett has what appears to be stage IV ovarian cancer because of a pleural effusion and because of carcinomatosis within her abdomen that has been biopsy- proven to be ovarian cancer. She has bulky intra-abdominal disease. She has restrictive lung disease due to her obesity, the intra-abdominal carcinomatosis and the pleural effusion. She is having dyspnea with exertion. She received her First course of chemotherapy on May 08, 2017 and it consisted of Taxol 300 mg IV and carboplatin 750 mg IV. I have ordered a BRCA 1 and 2 screen on this patient and it has not been done. It has not even been actually ordered as far as I can tell. I will reorder it at a later date. She underwent thoracentesis yesterday and 1.4 L of fluid were removed. Studies only and are pending. Lab work today is satisfactory and it includes: White cell count 5800 with an ANC of 4300 Hemoglobin 11.1 Platelet count 392,000. Comprehensive metabolic profile is normal except for a low calcium of 8.1 with a correspondingly low albumin of 2.4. Also her LDH is 297. Her next course of chemotherapy will be due around May. If she is sent to a swing bed, need to see her back in 2 weeks for follow-up. Today she is oriented and alert and she tells me that she is breathing better. She is having some left chest discomfort after the thoracentesis yesterday. Diagnostic studies from the thoracentesis are pending. Exam - Constitutional Vitals: Period Temp Pulse Resp BP Sys/Arango Pulse Ox Last 24 Hr 97.1 F-97.6 F 82-122 16-26 114-182/56-93 95-100 Results - Labs CBC & BMP: 05/13/17 04:20 05/13/17 04:20
--- NOTE | 2017-05-13 08:23 | Pulmonology Progress Note ---
Pulmonary - PN: Subj Interval history: Patient is a 46-year-old that comes in with some fever and abdominal discomfort and mild shortness of breath. She has ascites and ovarian mass and is felt to have carcinomatosis. She does have a left lower lobe consolidation and effusion. She is getting antibiotics for pneumonia. Her pathology did come back consistent with ovarian cancer. She did get her chemotherapy [place] she says she had a fairly rough weekend. She had a lot of abdominal cramps and nausea. She is eating a little better and had a fairly good night. She still has considerable abdominal bloating and some shortness of breath. Her chest x-ray does show an increased left pleural effusion. Yesterday she did get a thoracentesis and 1400 cc removed. She is using her CPAP during the night. She says her chest is sore from the tap but otherwise her breathing is okay. Dopplers of her legs were negative. She is reasonably stable at present. Exam (Progress Note) - Constitutional Vitals: Period Temp Pulse Resp BP Sys/Arango Pulse Ox Last 24 Hr 97.1 F-97.5 F 82-122 16-26 114-182/56-93 95-100 Exam: General appearance: mild distress (The patient is lying in bed with her CPAP at home. She seems to be comfortable.) - Head Head exam: Present: normal inspection, normocephalic - Eye Eye exam: Present: EOMI. Absent: scleral icterus Pupils: Present: CONCEPCION - ENT ENT exam: Present: normal exam - Neck Neck exam: Present: normal inspection. Absent: lymphadenopathy - Respiratory Respiratory exam: Present: She still has decreased breath sounds in the bases but is hard to examine lying in bed. She does not have any wheezing. She is moving air okay. - Cardiovascular Cardiovascular exam: Present: regular rate and rhythm. Absent: gallop, systolic murmur - GI/Abdominal GI/Abdominal exam: Present: She still has a very swollen firm abdomen. She does have a very large abdomen. She does have some mild tenderness in her abdomen. Her abdomen is about the same so far. - Extremities Exam Extremities exam: Present: edema (She does have mild edema of her legs.). Absent: calf tenderness - Neurological Exam Neurological exam: Present: alert, oriented X3, CN II-XII intact, she has no focal deficits. - Psychiatric Psychiatric exam: Present: normal affect, normal mood - Skin Skin exam: Present: warm, dry Results - Labs CBC & BMP: 05/13/17 04:20 05/13/17 04:20 - Diagnostic Findings Procedure: Ultrasound: report reviewed by me (Venous Dopplers are negative.) Assessment and Plan (1) Pneumonia Status: Acute Assessment and plan: The patient is having less symptoms with decreased coughing. She still gets short of breath easily. She is not having any toxic features. The pleural fluid was apparently serosanguineous and is likely due to the ovarian cancer. Current Visit: Yes Qualifiers: Pneumonia type: due to Mycoplasma pneumoniae Laterality: left (2) Malignant neoplasm of ovary Status: Acute Assessment and plan: She apparently has large ovarian masses and carcinomatosis. Her biopsy is consistent with ovarian cancer. She started chemotherapy Thursday. Her nausea and appetite are better. Current Visit: Yes Qualifiers: Laterality: unspecified laterality Qualified Code(s): C56.9 - Malignant neoplasm of unspecified ovary (3) Abdominal carcinomatosis Status: Acute Assessment and plan: She does have swelling and ascites and a very large abdomen. She complains of tightness of her abdomen and some discomfort. He has been having some abdominal cramps but is better now. Current Visit: Yes (4) Morbid obesity Status: Chronic Assessment and plan: The patient is considerably overweight at this point. She did diurese a little. She looks comfortable at present. She is using CPAP during the night. Current Visit: Yes
[2017-05-13] MEDS: METHOCARBAMOL 750 MG TABLET PO SCH ×3 (08:33→20:33)
[2017-05-13] MEDS: MULTIVITAMIN (CENTRUM) TABLET PO SCH (08:33)
[2017-05-13] MEDS: DOCUSATE/SENNA 50-8.6 MG TABLET PO SCH (08:33)
[2017-05-13] MEDS: AZITHROMYCIN 250 MG TABLET PO SCH (08:33)
[2017-05-13] MEDS: PANTOPRAZOLE 40 MG TABLET PO SCH (08:33)
[2017-05-13] MEDS: LISINOPRIL 10 MG TABLET PO SCH (08:33)
--- NOTE | 2017-05-13 10:43 | Hospitalist Progress Note ---
<Josesito Chacon - Last Filed: 05/13/17 10:35> Assessment and Plan (1) Abdominal carcinomatosis Status: Acute Assessment and plan: Oncology following patient. She received first chemo treatment on Thursday. Current Visit: Yes (2) Pleural effusion Status: Acute Assessment and plan: Pulmonology following. Possible plan for thoracentesis. 05/13 Pt had thoracentesis on 05/12. 1.4L removed. Pt is breathing much better. Breath sounds are clearer. Current Visit: Yes (3) Pneumonia Status: Acute Assessment and plan: Continue treatment with current therapy. (Azithromycin and Rocephin antibiotics) . Pulmonology following. Current Visit: Yes Qualifiers: Pneumonia type: due to Mycoplasma pneumoniae Laterality: left (4) Morbid obesity Status: Chronic Assessment and plan: Encourage patient to pursue healthier lifestyle. Current Visit: Yes Hospitalist: Subjective Interval history: Pt. was seen and examined today. Pt. is doing much better today. Very talkative and more alert. Family present at the bedside. Pt denies any issues with breathing. Pt is s/p thoracentesis yesterday where 1.4 L were removed. Results pending for cytology. Pt. does complain of some left sided soreness at site of tap but she denies any other complaints. We will continue to follow. Exam - Constitutional Vitals: Period Temp Pulse Resp BP Sys/Arango Pulse Ox Last 24 Hr 97.1 F-97.9 F 82-122 16-26 114-182/56-93 92-100 General appearance: no acute distress, morbidly obese - Head Head exam: Present: normal inspection, normocephalic - Eye Eye exam: Present: EOMI. Absent: scleral icterus Pupils: Present: CONCEPCION - Respiratory Respiratory exam: Present: clear to auscultation bilaterally. Absent: wheezes - Cardiovascular Cardiovascular exam: Present: regular rate and rhythm - GI/Abdominal GI/Abdominal exam: Present: normal bowel sounds, soft. Absent: tenderness - Extremities Exam Extremities exam: Present: normal capillary refill, edema - Neurological Exam Neurological exam: Present: alert, oriented X3 - Psychiatric Psychiatric exam: Present: normal affect, normal mood - Skin Skin exam: Present: normal color, warm, dry Results - Labs CBC & BMP: 05/13/17 04:20 05/13/17 04:20 Lab Results: I have reviewed the past 24 hour labs <Crystal Sebastian - Last Filed: 05/13/17 15:30> Hospitalist: Subjective Interval history: Patient states her shortness of breath is much improved. She is breathing comfortably on room air though she does pull her oxygen up occasionally. She is tolerating oral intake. No chest pain reported. Tolerating p.o. Physical exam is unchanged except for the lung exam has improved aeration without any adventitious lung sounds appreciated Labs and investigative studies reviewed Medications reviewed Assessment and plan: (1) Abdominal carcinomatosis Status: Acute Assessment and plan: Status post chemotherapy. Oncology following. Antiemetics as needed. Abdominal pain is likely due to metastatic disease patient has prescription for as needed analgesic. 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 Patient appears to be euvolemic -Urine sodium, creatinine, osmolality reviewed. TSH only mildly elevated but free T4 was within normal limits. Total T3 was ordered. Sodium fairly stable. (4) Obstructive sleep apnea Status: Chronic Assessment and plan: CPAP with titration per sleep medicine. (5) Malignant neoplasm of ovary Status: Acute Assessment and plan: Followed by oncology and on chemo Current Visit: Yes Qualifiers: Laterality: unspecified laterality Qualified Code(s): C56.9 - Malignant neoplasm of unspecified ovary -Management per primary service (6) Morbid obesity BMI of 67.5 Discussed with nurse, patient, family. All questions answered. I understand that case management is trying to arrange for swing bed of which I think the patient may benefit. We will sign off for now. Please call if there are any questions or concerns. thank you for consulting us to participate in the care of this patient. Exam - Constitutional Vitals: Period Temp Pulse Resp BP Sys/Arango Pulse Ox Last 24 Hr 97.1 F-97.9 F 82-118 16-26 114-182/56-93 91-100 Results - Labs CBC & BMP: 05/13/17 04:20 05/13/17 04:20
[2017-05-13] MEDS: INSULIN REGULAR 100 UNIT/ML SUBCUT SCH ×2 (10:44→18:22)
[2017-05-13] MEDS: ENOXAPARIN 40 MG/0.4 ML SYRINGE SUBCUT SCH (13:54)
--- NOTE | 2017-05-13 17:36 | Sleep Medicine Progress Note ---
Assessment and Plan (1) Unspecified sleep apnea Status: Acute Assessment and plan: We will continue treatment for obstructive sleep apnea with auto titration CPAP and follow-up compliance data. Current Visit: Yes (2) Morbid obesity Status: Chronic Current Visit: Yes Sleep Medicine Subjective Interval history: Patient looks much more comfortable today. She did have large volume thoracentesis yesterday with 1.4 L removed. She looked short of breath and uncomfortable when I saw her yesterday and does appear much better. She did utilize auto titration CPAP last night and stated that it helped her. She states that she felt that she breathes better with it. She did sleep with it almost 6 hours last night but had an average AHI of 5.9. Her best pressure appeared to be about 8 cm. This is a less than ideal result with CPAP and will continue to monitor this and follow-up results. Given her improvement clinically, encouraged her to continue to utilize this and will follow up daily downloaded compliance data and make adjustments if needed. Exam (Progress Note) - Constitutional Vitals: Period Temp Pulse Resp BP Sys/Arango Pulse Ox Last 24 Hr 97.1 F-97.9 F 82-105 16-22 114-138/56-63 91-99 Exam: Patient alert and responsive. Appears much more comfortable. Large neck. Chest with symmetrical breath sounds without significant wheeze or rhonchi. Cardiac exam reveals a more normal regular rhythm. Abdomen obese nontender without calf tenderness or increased edema. Neurologically, grossly intact. She answers all questions appropriately. Results - Labs CBC & BMP: 05/13/17 04:20 05/13/17 04:20 Lab Results: I have reviewed the past 24 hour labs
[2017-05-14] MEDS: cefTRIAXone 1,000 MG in SODIUM CHLORIDE 0.9% 100 ML IV SCH (01:31)
[2017-05-14 05:10] LABS: Basophils % 0.6 % (0.0-0.8); Eosinophils # 0.3 10*3/uL (0.0-0.87); Eosinophils % 6.2 % (0.00-10.9); Hematocrit 34.5 VOL% (35.7-47.0); Hemoglobin 11.1 GM/DL (12.0-16.0); Immature Granulocytes % 0.4 %; Immature Granulocytes Absolute 0.02 #; Lymphocytes # 1.1 10*3/uL (1.4-4.0); Lymphocytes % 20.4 % (21.3-54.2); Mean Corpuscular HGB Conc 32.2 GM/DL (32-36); Mean Corpuscular Hemoglobin 30 PG (27-34); Mean Platelet Volume 10.7 FL (9.6-12.0); Monocytes # 0.3 10*3/uL (0.11-0.8); Monocytes % 5.5 % (1.7-12.7); Neutrophils # 3.7 10*3/uL (1.4-7.4); Neutrophils % 66.9 % (38.7-73.9); Platelet Count 376 T/CUMM (130-400); Red Blood Count 3.75 MC/CUMM (3.8-5.5); Red Cell Distribution Width 14.6 % (9.3-17.3); White Blood Count 5.5 T/CUMM (4-12)
[2017-05-14 05:41] LABS: Alanine Aminotransferase 22 U/L (13-56); Albumin 2.3 G/DL (3.4-5.0); Alkaline Phosphatase 86 U/L (45-117); Aspartate Amino Transferase 25 U/L (0-37); Bilirubin,Total < 0.39 MG/DL (0.2-1.0); Blood Urea Nitrogen 10 MG/DL (7-18); Calcium 7.9 MG/DL (8.5-10.1); Glucose 93 MG/DL (74-106); Osmolality,Calculated 268.1 MOS/KG (273-304); Potassium 4.5 MMOL/L (3.5-5.1); Sodium 135 MMOL/L (136-145)
[2017-05-14] MEDS: ALBUTEROL 2.5 MG/3 ML NEB RESP TX SCH ×4 (07:18→20:24)
--- NOTE | 2017-05-14 08:56 | Oncology Progress Note ---
Oncology Subjective PN Interval history: Ms. Jarrett has what appears to be stage IV ovarian cancer because of a pleural effusion and because of carcinomatosis within her abdomen that has been biopsy- proven to be ovarian cancer. She has bulky intra-abdominal disease. She has restrictive lung disease due to her obesity, the intra-abdominal carcinomatosis and the pleural effusion. She is having dyspnea with exertion. She received her First course of chemotherapy on May 08, 2017 and it consisted of Taxol 300 mg IV and carboplatin 750 mg IV. I have ordered a BRCA 1 and 2 screen on this patient and it has not been done. It has not even been actually ordered as far as I can tell. I will reorder it at a later date. She underwent thoracentesis May 12, 2017 and 1.4 L of fluid were removed. Studies only and are pending. Lab work today is satisfactory and it includes: White cell count 5500 Hemoglobin 11.1 Platelet count 376,000. CMP is relatively acceptable. Potassium is 4.5 with a serum calcium of 7.9 reflecting the low albumin of 2.3. The LDH is 308. BRCA has been ordered and is not back. Her next course of chemotherapy will be due around May 29. If she is sent to a swing bed, need to see her back in 2 weeks for follow-up. Today she is oriented and alert and she tells me that she is breathing better. She is having less chest discomfort today than yesterday. We are still awaiting pathology from the thoracentesis and also still awaiting additional lab work. Her case is being reviewed at the [facility] service and she can be transferred to swing bed there if she stabilizes and it is okay with them. She will need an appointment to see me sometime prior to May 29 in order to okay her next course of chemotherapy. I would hope to be able to add Avastin during the current chemotherapy at some point. Exam - Constitutional Vitals: Period Temp Pulse Resp BP Sys/Arango Pulse Ox Last 24 Hr 97.3 F-98.0 F 90-107 18-22 112-137/55-76 91-99 Results - Labs CBC & BMP: 05/14/17 04:00 05/14/17 04:00
[2017-05-14] MEDS: METHOCARBAMOL 750 MG TABLET PO SCH ×3 (09:28→21:06)
[2017-05-14] MEDS: MULTIVITAMIN (CENTRUM) TABLET PO SCH (09:28)
[2017-05-14] MEDS: PANTOPRAZOLE 40 MG TABLET PO SCH (09:29)
[2017-05-14] MEDS: DOCUSATE/SENNA 50-8.6 MG TABLET PO SCH (09:29)
--- NOTE | 2017-05-14 10:02 | XRay Report ---
History is pleural effusion postthoracentesis Comparison 05/12/2017 The sternal contours unchanged A moderate to large left pleural effusion present with diffuse hazy underlying pulmonary opacities and underlying atelectasis. Underlying infiltrates could easily be present as well. Mild hypoaeration changes in the right base present Chronic right rib fractures present No pneumothorax seen Impression: Moderate to large left pleural effusion with underlying parenchymal opacities PROCEDURE INTERPRETED AT [facility] DEPARTMENT OF RADIOLOGY Final Report Signed by: Dr. Annie Kitchen
[2017-05-14] MEDS: AZITHROMYCIN 250 MG TABLET PO SCH (10:12)
[2017-05-14] MEDS: LISINOPRIL 10 MG TABLET PO SCH (10:12)
[2017-05-14] MEDS: INSULIN REGULAR 100 UNIT/ML SUBCUT SCH ×2 (10:23→18:39)
--- NOTE | 2017-05-14 12:18 | Pulmonology Progress Note ---
Pulmonary - PN: Subj Interval history: Patient is a 46-year-old that comes in with some fever and abdominal discomfort and mild shortness of breath. She has ascites and ovarian mass and is felt to have carcinomatosis. She does have a left lower lobe consolidation and effusion. She is getting antibiotics for pneumonia. Her pathology did come back consistent with ovarian cancer. She did get her chemotherapy Thursday she says she had a fairly rough weekend. She did get a thoracentesis this week and she felt like her breathing is little better. She had a little trouble with her CPAP last night. She is on low-flow oxygen today and says she is comfortable. Her abdominal pain is a little better. Exam (Progress Note) - Constitutional Vitals: Period Temp Pulse Resp BP Sys/Arango Pulse Ox Last 24 Hr 97.3 F-98.0 F 90-107 18-22 112-137/53-76 91-99 Exam: General appearance: mild distress (The patient is sitting up and looks comfortable today.) - Head Head exam: Present: normal inspection, normocephalic - Eye Eye exam: Present: EOMI. Absent: scleral icterus Pupils: Present: CONCEPCION - ENT ENT exam: Present: normal exam - Neck Neck exam: Present: normal inspection. Absent: lymphadenopathy - Respiratory Respiratory exam: Present: She still has decreased breath sounds in the bases but is hard to examine lying in bed. She does not have any wheezing. She seems to be moving air okay. - Cardiovascular Cardiovascular exam: Present: regular rate and rhythm. Absent: gallop, systolic murmur - GI/Abdominal GI/Abdominal exam: Present: She still has a very swollen firm abdomen. She does have a very large abdomen. She does have some mild tenderness in her abdomen. Her abdomen is about the same so far. - Extremities Exam Extremities exam: Present: edema (She does have mild edema of her legs.). Absent: calf tenderness - Neurological Exam Neurological exam: Present: alert, oriented X3, CN II-XII intact, she has no focal deficits. - Psychiatric Psychiatric exam: Present: normal affect, normal mood - Skin Skin exam: Present: warm, dry Results - Labs CBC & BMP: 05/14/17 04:00 05/14/17 04:00 - Diagnostic Findings Procedure: Chest x-ray: image reviewed by me, report reviewed by me (Chest x- ray still shows a left pleural effusion.) Assessment and Plan (1) Pneumonia Status: Acute Assessment and plan: The patient is having less symptoms with decreased coughing. She still gets short of breath easily. Overall she seems stable and will stop her antibiotics. Current Visit: Yes Qualifiers: Pneumonia type: due to Mycoplasma pneumoniae Laterality: left (2) Malignant neoplasm of ovary Status: Acute Assessment and plan: She apparently has large ovarian masses and carcinomatosis. Her biopsy is consistent with ovarian cancer. She started chemotherapy Thursday. Her nausea and appetite are better. Current Visit: Yes Qualifiers: Laterality: unspecified laterality Qualified Code(s): C56.9 - Malignant neoplasm of unspecified ovary (3) Abdominal carcinomatosis Status: Acute Assessment and plan: She does have swelling and ascites and a very large abdomen. She complains of tightness of her abdomen and some discomfort. She says her abdominal discomfort is better today however. Current Visit: Yes (4) Morbid obesity Status: Chronic Assessment and plan: The patient is considerably overweight at this point. She did diurese a little. She looks comfortable at present. She is using CPAP during the night. Current Visit: Yes
[2017-05-14] MEDS ORDERED: FUROSEMIDE 40 MG/4 ML VIAL IV ONE (12:20)
[2017-05-14] MEDS ORDERED: HEPARIN LOCK FLUSH 500 UNIT/5 ML SYRINGE IV ONE ×2 (13:09→13:16)
--- NOTE | 2017-05-14 13:16 | Pathology Report from [facility] ---
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 05/14/2017 - 9:28:44 [facility]
[2017-05-14] MEDS: ENOXAPARIN 40 MG/0.4 ML SYRINGE SUBCUT SCH (13:18)
--- NOTE | 2017-05-14 17:15 | Sleep Medicine Progress Note ---
Assessment and Plan (1) Unspecified sleep apnea Status: Acute Assessment and plan: We will continue CPAP auto titration for her obstructive sleep apnea. Current Visit: Yes (2) Morbid obesity Status: Chronic Current Visit: Yes Sleep Medicine Subjective Interval history: Patient states that she briefly utilized her AutoPap last night. She got short of breath after she got up for the bathroom and did not put her CPAP back on. She will try again tonight. Exam (Progress Note) - Constitutional Vitals: Period Temp Pulse Resp BP Sys/Arango Pulse Ox Last 24 Hr 97.3 F-98.0 F 90-107 17-22 112-137/53-76 91-99 Exam: Patient alert and responsive. Appears much more comfortable. Large neck. Chest with symmetrical breath sounds without significant wheeze or rhonchi. Cardiac exam reveals a more normal regular rhythm. Abdomen obese nontender without calf tenderness or increased edema. Neurologically, grossly intact. She answers all questions appropriately. Results - Labs CBC & BMP: 05/14/17 04:00 05/14/17 04:00 Lab Results: I have reviewed the past 24 hour labs
[2017-05-14] MEDS: ONDANSETRON 4 MG/2 ML VIAL IV PRN (19:45)
[2017-05-15] MEDS: ALBUTEROL 2.5 MG/3 ML NEB RESP TX SCH ×3 (04:17→14:03)
[2017-05-15 05:49] LABS: Basophils % 0.5 % (0.0-0.8); Eosinophils # 0.4 10*3/uL (0.0-0.87); Eosinophils % 7.3 % (0.00-10.9); Hematocrit 34.2 VOL% (35.7-47.0); Hemoglobin 10.9 GM/DL (12.0-16.0); Immature Granulocytes % 0.5 %; Immature Granulocytes Absolute 0.03 #; Lymphocytes # 1.2 10*3/uL (1.4-4.0); Lymphocytes % 19.9 % (21.3-54.2); Mean Corpuscular HGB Conc 31.9 GM/DL (32-36); Mean Corpuscular Hemoglobin 29 PG (27-34); Mean Corpuscular Volume 92.2 FL (87-102); Mean Platelet Volume 10.5 FL (9.6-12.0); Monocytes # 0.6 10*3/uL (0.11-0.8); Monocytes % 11.1 % (1.7-12.7); Neutrophils # 3.5 10*3/uL (1.4-7.4); Neutrophils % 60.7 % (38.7-73.9); Platelet Count 392 T/CUMM (130-400); Red Blood Count 3.71 MC/CUMM (3.8-5.5); Red Cell Distribution Width 14.6 % (9.3-17.3); White Blood Count 5.8 T/CUMM (4-12)
[2017-05-15 06:26] LABS: Alanine Aminotransferase 19 U/L (13-56); Albumin 2.4 G/DL (3.4-5.0); Alkaline Phosphatase 88 U/L (45-117); Aspartate Amino Transferase 24 U/L (0-37); Bilirubin,Total < 0.39 MG/DL (0.2-1.0); Blood Urea Nitrogen 10 MG/DL (7-18); Calcium 8.1 MG/DL (8.5-10.1); Glucose 88 MG/DL (74-106); Osmolality,Calculated 265.2 MOS/KG (273-304); Potassium 4.5 MMOL/L (3.5-5.1); Sodium 134 MMOL/L (136-145); Total Protein 6.1 G/DL (6.4-8.3)
--- NOTE | 2017-05-15 08:40 | XRay Report ---
XR chest 2V Indication: Pleural effusion postthoracentesis Comparison: Chest x-ray dated May 14, 2017 Technique: Frontal and lateral views of the chest. Findings: Left-sided PICC line appears unchanged. Left-sided pulmonary opacification in moderate to large left pleural fluid appear unchanged. Visualized osseous and surrounding soft tissue structures appear grossly unchanged. IMPRESSION: No significant interval change. PROCEDURE INTERPRETED AT [facility] DEPARTMENT OF RADIOLOGY Final Report Signed by: Dr Pedro Diaz
[2017-05-15] MEDS: INSULIN REGULAR 100 UNIT/ML SUBCUT SCH (09:10)
[2017-05-15] MEDS: LISINOPRIL 10 MG TABLET PO SCH (09:11)
[2017-05-15] MEDS: DOCUSATE/SENNA 50-8.6 MG TABLET PO SCH (09:11)
[2017-05-15] MEDS: PANTOPRAZOLE 40 MG TABLET PO SCH (09:11)
[2017-05-15] MEDS: MULTIVITAMIN (CENTRUM) TABLET PO SCH (09:11)
[2017-05-15] MEDS: ERGOCALCIFEROL 50,000 UNIT CAPSULE PO SCH (09:11)
[2017-05-15] MEDS: METHOCARBAMOL 750 MG TABLET PO SCH (09:11)
--- NOTE | 2017-05-15 09:31 | Hospitalist Progress Note ---
Assessment and Plan (1) Abdominal carcinomatosis Status: Acute Assessment and plan: Oncology following patient. She received first chemo treatment last week. Current Visit: Yes (2) Pleural effusion Status: Acute Assessment and plan: Pulmonology following. Possible plan for thoracentesis. 05/13 Pt had thoracentesis on 05/12. 1.4L removed. Pt is breathing much better. Breath sounds are clearer. 05/15 Breathing is much improved. Pt. states she feels much better. Current Visit: Yes (3) Pneumonia Status: Acute Assessment and plan: Pulmonology following. Current Visit: Yes Qualifiers: Pneumonia type: due to Mycoplasma pneumoniae Laterality: left (4) Morbid obesity Status: Chronic Assessment and plan: Encourage patient to pursue healthier lifestyle. Current Visit: Yes Hospitalist: Subjective Interval history: Patient seen and examined this morning. Patient alert and oriented. Patient reports brief episode of chest pain this morning that was resolved after receiving [place]. Patient has no other complaints at this time. Breathing is much improved. Pt. is hopeful that she will be transferred to the [facility] today. Exam - Constitutional Vitals: Period Temp Pulse Resp BP Sys/Ar[place] Pulse Ox Last 24 Hr 96.5 F-98.0 F 56-107 17-23 110-126/52-67 91-100 General appearance: morbidly obese, no no acute distress - Head Head exam: Present: normal inspection, normocephalic - Eye Eye exam: Present: EOMI. Absent: scleral icterus Pupils: Present: CONCEPCION - ENT ENT exam: Present: normal exam - Neck Neck exam: Present: normal inspection - Respiratory Respiratory exam: Present: clear to auscultation bilaterally. Absent: wheezes - Cardiovascular Cardiovascular exam: Present: regular rate and rhythm - GI/Abdominal GI/Abdominal exam: Present: normal bowel sounds, soft. Absent: tenderness - Extremities Exam Extremities exam: Present: normal inspection, edema - Neurological Exam Neurological exam: Present: alert, oriented X3 - Psychiatric Psychiatric exam: Present: normal affect, normal mood - Skin Skin exam: Present: normal color, warm, dry Results - Labs CBC & BMP: 05/15/17 04:00 05/15/17 04:00 Lab Results: I have reviewed the past 24 hour labs
--- NOTE | 2017-05-15 11:30 | Pulmonology Progress Note ---
Pulmonary - PN: Subj Interval history: Patient is a 46-year-old that comes in with some fever and abdominal discomfort and mild shortness of breath. She has ascites and ovarian mass and is felt to have carcinomatosis. She does have a left lower lobe consolidation and effusion. She is getting antibiotics for pneumonia. Her pathology did come back consistent with ovarian cancer. She did get her chemotherapy Thursday she says she had a fairly rough weekend. She did get a thoracentesis this week and she felt like her breathing is little better. She had a little trouble with her CPAP last night. She is on low-flow oxygen today and says she is comfortable. Her abdominal pain is a little better. She says she feels a little better today and did diurese fairly well yesterday. She looks like her breathing is better. She is probably going to a swing bed soon. Exam (Progress Note) - Constitutional Vitals: Period Temp Pulse Resp BP Sys/Arango Pulse Ox Last 24 Hr 96.5 F-98.0 F 56-107 17-23 110-126/52-67 91-100 Exam: General appearance: no distress (The patient is sitting up and looks comfortable today. She looks like she is breathing better today.) - Head Head exam: Present: normal inspection, normocephalic - Eye Eye exam: Present: EOMI. Absent: scleral icterus Pupils: Present: CONCEPCION - ENT ENT exam: Present: normal exam - Neck Neck exam: Present: normal inspection. Absent: lymphadenopathy - Respiratory Respiratory exam: Present: She still has decreased breath sounds in the bases but is hard to examine lying in bed. She does not have any wheezing. She seems to be moving air okay. - Cardiovascular Cardiovascular exam: Present: regular rate and rhythm. Absent: gallop, systolic murmur - GI/Abdominal GI/Abdominal exam: Present: She still has a very swollen firm abdomen. She does have a very large abdomen. She does have some mild tenderness in her abdomen. Her abdomen is about the same so far. - Extremities Exam Extremities exam: Present: Her leg swelling overall is better. - Neurological Exam Neurological exam: Present: alert, oriented X3, CN II-XII intact, she has no focal deficits. - Psychiatric Psychiatric exam: Present: normal affect, normal mood - Skin Skin exam: Present: warm, dry Results - Labs CBC & BMP: 05/15/17 04:00 05/15/17 04:00 Assessment and Plan (1) Pneumonia Status: Acute Assessment and plan: The patient is having less symptoms with decreased coughing. She does not have any signs of pneumonia and her antibiotics were stopped. Her breathing is doing better. Current Visit: Yes Qualifiers: Pneumonia type: due to Mycoplasma pneumoniae Laterality: left (2) Malignant neoplasm of ovary Status: Acute Assessment and plan: She apparently has large ovarian masses and carcinomatosis. Her biopsy is consistent with ovarian cancer. She started chemotherapy Thursday. Her nausea and appetite are better. Current Visit: Yes Qualifiers: Laterality: unspecified laterality Qualified Code(s): C56.9 - Malignant neoplasm of unspecified ovary (3) Abdominal carcinomatosis Status: Acute Assessment and plan: She does have swelling and ascites and a very large abdomen. Her abdominal discomfort is better. Overall she is reasonably stable. She will probably go to the swing bed soon. Current Visit: Yes (4) Morbid obesity Status: Chronic Assessment and plan: The patient is considerably overweight at this point. She did diurese a little. She looks comfortable at present. She is using CPAP during the night. Current Visit: Yes
[2017-05-15 12:30] VITALS: BP 143/64
--- NOTE | 2017-05-15 12:32 | Discharge Summary ---
Hospital Course - Hospital Course Hospital Course: This patient was admitted with fever and abdominal pain. During this admission she was seen in consultation by pulmonary medicine and by sleep medicine. The patient underwent biopsy with findings consistent with ovarian carcinoma. She was treated with Taxol and carboplatinum cycle #[address] Dorado. She is breathing comfortable today on room air. A 1.4 L thoracentesis was performed earlier this week her case is complicated by morbid obesity. We have sought placement initially at [facility] now the patient has been approved for stay at [facility]. Her labs are reviewed. She is felt stable for discharge. Oncology follow-up with Dr. Dorado is in process. Discharge Plan - Discharge Medications No Action HYDROcodone/ACETAMIN 7.5-325 [Pace 7.5-325] 1 tablet PO Q6H PRN PRN Reason: Pain Acetaminophen Tab [Tylenol Tab] 500 mg PO Q6H PRN PRN Reason: pain/fever Tramadol HCl [Tramadol Tab] 50 mg PO Q6H PRN PRN Reason: Pain Methocarbamol Tab [Robaxin Tab] 750 mg PO TID Ondansetron [Ondansetron Odt] 2 mg PO Q8H PRN PRN Reason: Nausea/Vomiting Multivitamin [One Daily Multivitamin] 1 each PO DAILY Lisinopril 10 mg PO DAILY Ergocalciferol (Vitamin D2) [Vitamin D2] 50,000 unit PO Q7DAY Sennosides/Docusate Sodium [Senna-S Tablet] 1 each PO DAILY - Follow Up or Referral - Forms/Instructions Exam - Constitutional Vitals: Period Temp Pulse Resp BP Sys/[place] Pulse Ox Last 24 Hr 96.5 F-98.0 F 56-107 17-23 110-143/52-67 90-100 Discharge Results Procedures and tests throughout hospitalization: Pending Orders 05/02/17 16:40 BRCA1/BRCA2 Full Gene Analysis Routine 05/12/17 15:10 Cytology Request Routine 05/13/17 Triiodothyronine (T3) Total Stat 05/16/17 04:00 Comp Blood Count Auto Diff IN AM Comprehensive Metabolic Panel IN AM LDH [Lactate Dehydrogenase] IN AM 05/17/17 04:00 Comp Blood Count Auto Diff IN AM Comprehensive Metabolic Panel IN AM Labs on day of discharge: Labs from last 24 hours 05/15/17 05/15/17 05/15/17 07:50 04:00 04:00 WBC 5.8 RBC 3.71 L Hgb 10.9 L Hct 34.2 L MCV 92.2 MCH 29 MCHC 31.9 L RDW 14.6 Plt Count 392 MPV 10.5 Neut % (Auto) 60.7 Lymph % (Auto) 19.9 L [place] % (Auto) 11.1 Eos % (Auto) 7.3 Baso % (Auto) 0.5 Neut # (Auto) 3.5 Lymph # (Auto) 1.2 L [place] # (Auto) 0.6 Eos # (Auto) 0.4 Baso # (Auto) 0.0 Immature Gran % 0.5 Nucleated RBC % 0.0 Immature Gran # 0.03 Nucleated RBCs # 0.00 Sodium 134 L Potassium 4.5 Chloride 92 L Carbon Dioxide 38 H Anion Gap 8.5 BUN 10 Creatinine 0.50 L GFR Calculation 159 BUN/Creatinine Ratio 20.00 Glucose 88 POC Glucose 97 Calculated Osmolality 265.2 L Calcium 8.1 L Total Bilirubin < 0.39 AST 24 ALT 19 Alkaline Phosphatase 88 Lactate Dehydrogenase 313 H Total Protein 6.1 L Albumin 2.4 L Globulin 3.7 H Albumin/Globulin Ratio 0.6 L 05/14/17 16:00 WBC RBC Hgb Hct MCV MCH MCHC RDW Plt Count MPV Neut % (Auto) Lymph % (Auto) [place] % (Auto) Eos % (Auto) Baso % (Auto) Neut # (Auto) Lymph # (Auto) [place] # (Auto) Eos # (Auto) Baso # (Auto) Immature Gran % Nucleated RBC % Immature Gran # Nucleated RBCs # Sodium Potassium Chloride Carbon Dioxide Anion Gap BUN Creatinine GFR Calculation BUN/Creatinine Ratio Glucose POC Glucose 127 H Calculated Osmolality Calcium Total Bilirubin AST ALT Alkaline Phosphatase Lactate Dehydrogenase Total Protein Albumin Globulin Albumin/Globulin Ratio DS: Provider Date of admission: 05/01/17 02:19 Primary care physician: Judy Sam MD Attending physician on admission: Dago Sherman MD Consults: 05/01/17 02:30 Consult to Physician [CONS] Routine Comment: Consulting Provider: Lauro Dominique Consulting Provider Notified: Yes Consult to Specialist Group: Pulmonology When should Consulting Provider be notified: In am Person Notified: CRISTI Date Notified: 05/01/17 Time Notified: 08:45 05/01/17 02:35 Consult to Physician [CONS] Routine Comment: Consulting Provider: Dago Dorado Consulting Provider Notified: Yes Consult to Specialist Group: Oncology When should Consulting Provider be notified: In am Person Notified: DM Date Notified: 05/01/17 Time Notified: 08:40 05/11/17 07:22 Consult to Sleep Center [CONS] Routine Reason for Sleep Center: Other Consult Comment: EVAL ABHISHEK 05/11/17 07:36 Consult to Case Mgmt/Social Srvs [CONS] Routine Reason for Case Mgmt/Social Srvs: Equipment Consult Comment: Needs home oxygen on discharge 05/11/17 08:03 Consult to Case Mgmt/Social Srvs [CONS] Routine Reason for Case Mgmt/Social Srvs: Swingbed/SNF/Assisted Consult Comment: Swing bed placement Discharging clinician: Dago Ordonez MD
[2017-05-15] MEDS: ENOXAPARIN 40 MG/0.4 ML SYRINGE SUBCUT SCH (12:34)
--- NOTE | 2017-05-15 13:28 | Sleep Medicine Progress Note ---
Assessment and Plan (1) Unspecified sleep apnea Status: Acute Assessment and plan: Schedule outpatient sleep study and follow-up at the [facility] sleep clinic. Current Visit: Yes (2) Morbid obesity Status: Chronic Current Visit: Yes Sleep Medicine Subjective Interval history: Patient has been poorly compliant with CPAP the last 2 nights. She did have evidence of mild obstructive sleep apnea on her original diagnostic HST. Given her recalcitrance to compliance with therapy, I think she would be better served to follow-up at the [facility] sleep clinic and undergo reevaluation and formal titration to get best results and best treatment compliance. Exam (Progress Note) - Constitutional Vitals: Period Temp Pulse Resp BP Sys/[place] Pulse Ox Last 24 Hr 96.5 F-98.0 F 56-107 17-23 110-143/52-67 90-100 Exam: Patient alert and responsive. Appears much more comfortable. Large neck. Chest with symmetrical breath sounds without significant wheeze or rhonchi. Cardiac exam reveals a more normal regular rhythm. Abdomen obese nontender without calf tenderness or increased edema. Neurologically, grossly intact. She answers all questions appropriately. Results - Labs CBC & BMP: 05/15/17 04:00 05/15/17 04:00 Lab Results: I have reviewed the past 24 hour labs Specialty Discharge - Follow Up or Referrals Follow up with: Dago Dorado MD [Physician] - 05/28/17 8:45 am (APPT WITH IS ON May AT 845AM FOR LAB WORK AND SEE AT 1045AM)
[2017-05-26 16:21] LABS: Result Summary NEGATIVE
== END 2017-05-15 14:38 | DRG 754 ==
LOC: N.ED 23:53 → SUATTDRO 05-01 02:18 → N.EDINP 05-01 02:18 → SUATTDRO 05-01 02:19 → N.ICU 05-01 03:06 → N.4E 05-02 13:42
PROVIDERS: ADMIT Internal Medicine; ATTEND Specialist
PROC: IRTHORA (2017-05-12 15:50)